=== PATIENT | female | born 1985 | race Caucasian/White ===

== ENCOUNTER 2016-04-14 09:11 | Inpatient (IN) | payer OTHER ==
[2016-04-14] MEDS ORDERED: LIDOCAINE 1% (PF) 10 MG/ML (30 ML SDV) SQ PRN (09:31)
[2016-04-14] MEDS ORDERED: CARBOPROST TROMETHAMINE 250 MCG/ML 1 ML AMP IM PRN (09:31)
[2016-04-14] MEDS ORDERED: TERBUTALINE 1 MG/ML VIAL SQ PRN (09:31)
[2016-04-14] MEDS ORDERED: OXYTOCIN 10 UNIT/ML 1 ML VIAL IM PRN (09:31)
[2016-04-14] MEDS ORDERED: METHYLERGONOVINE 0.2 MG/ML 1 ML AMP IM PRN (09:31)
[2016-04-14] MEDS: LACTATED RINGERS 1,000 ML IV SCH ×2 (10:12→10:33)
[2016-04-14 10:28] VITALS: BMI 42.6
[2016-04-14 10:34] LABS: Basophils % (A) 0 %; CH 29.4; CHCM 33.5; Eosinophils # (A) 0.1 k/uL (0-0.7); Eosinophils % (A) 1 %; HCT 32.5 % (34.0-46.0); HDW 2.94; HGB 10.7 gm/dL (11.4-16.0); Luc # (Auto) 0.21; Luc % (Auto) 2; Lymphocytes # (A) 2.2 k/uL (1.0-4.8); Lymphocytes % (A) 23 %; MCH 29.1 pg (25.0-35.0); MCHC 32.9 g/dL (31.0-37.0); MCV 88.4 fL (80.0-100.0); Mean Platelet Volume 7.4; Monocytes # (A) 0.4 k/uL (0-1.0); Monocytes % (A) 4 %; Neutrophils # (A) 6.5 k/uL (1.3-7.7); Neutrophils % (A) 70 %; RBC 3.68 m/uL (3.80-5.40); RDW 13.6 % (11.5-15.5); WBC 9.3 k/uL (3.8-10.6); WBC (Perox) 9.61
[2016-04-14] MEDS ORDERED: fentaNYL (PF) 50 MCG/ML 2 ML AMP ONE (10:35)
[2016-04-14] MEDS ORDERED: fentaNYL (PF) 50 MCG/ML 5 ML AMP ONE (10:35)
[2016-04-14] MEDS ORDERED: BUPIVACAINE (PF) 0.25% 30 ML VIAL ONE (10:35)
[2016-04-14] MEDS ORDERED: BUPIVACAINE (PF) 0.25% 25 ML, fentaNYL (PF) 200 MCG in SODIUM CHLORIDE 0.9% 71 ML EPIDURAL ONE (11:06)
[2016-04-14] MEDS: OXYTOCIN 30 UNITS/500 ML NS 30 UNIT in SALINE 1 500ML.BAG IV SCH ×2 (12:40→16:47)
[2016-04-14] MEDS ORDERED: WITCH HAZEL 1 EACH MED..PAD TOPICAL PRN (15:29)
[2016-04-14] MEDS ORDERED: LANOLIN CREAM 5 GM TUBE TOPICAL PRN (15:29)
[2016-04-14] MEDS ORDERED: HYDROCORTISONE 2.5% RECTAL CREAM 30 GM TUBE RECTAL PRN (15:29)
[2016-04-14] MEDS ORDERED: diphenhydrAMINE 25 MG CAP PO PRN (15:29)
[2016-04-14] MEDS ORDERED: diphenhydrAMINE 50 MG/ML 1 ML VIAL IVP PRN ×2 (15:29)
[2016-04-14] MEDS ORDERED: diphenhydrAMINE 50 MG CAP PO PRN (15:29)
[2016-04-14] MEDS ORDERED: BENZOCAINE/MENTHOL SPRAY 1 GM/SPRAY AEROSOL TOPICAL PRN (15:29)
[2016-04-14] MEDS ORDERED: SIMETHICONE 80 MG CHEWABLE PO PRN (15:29)
[2016-04-14] MEDS: IBUPROFEN 600 MG TAB PO PRN (15:42)
--- NOTE | 2016-04-14 18:51 | P.HPOB ---
History of Present Illness H&P Date: 04/14/16 Chief Complaint: Intrauterine at term: Spontaneous rupture membranes Patient is a 30-year-old at 40 weeks gestation who ryes secondary to spontaneous rupture membranes. She reports that her water broke at approximately 8:30 this morning and she was having some mild contractions at that time. She right labor and delivery dilated to 5 cm 80% effaced -2 station. Her course otherwise has been, limited with depression symptoms but no other specific. Pertinent labs do include A+ blood type Rh antibody negative rubella immune, hepatitis B surface antigen and RPR both negative. GBS was negative. Past Medical History Past Medical History: No Reported History History of Any Multi-Drug Resistant Organisms: None Reported Past Surgical History: No Surgical Hx Reported Past Anesthesia/Blood Transfusion Reactions: No Reported Reaction Past Psychological History: No Psychological Hx Reported Smoking Status: Former smoker Past Alcohol Use History: None Reported Past Drug Use History: None Reported - Past Family History Mother Family Medical History: No Reported History Medications and Allergies Home Medications Medication Instructions Recorded Confirmed Type No Known Home Medications [No 04/14/16 04/14/16 History Known Home Medications] Allergies Allergy/AdvReac Type Severity Reaction Status Date / Time No Known Allergies Allergy Verified 08/30/14 10:41 Exam Osteopathic Statement: *. No significant issues noted on an osteopathic structural exam other than those noted in the History and Physical/Consult. - Vital Signs Vital signs: Vital Signs Temp Pulse Resp BP 04/14/16 16:31 76 17 120/74 04/14/16 16:01 67 16 123/71 04/14/16 15:46 70 18 130/79 04/14/16 15:31 59 L 17 128/75 04/14/16 15:16 67 18 129/76 04/14/16 15:01 95.8 F L 74 16 127/76 04/14/16 10:19 96.4 F L 122 H 16 134/91 Intake and Output 04/14/16 04/14/16 04/14/16 06:59 14:59 22:59 Intake Total 2.85 Balance 2.85 Intake: Intake, IV Titration 2.85 Amount Oxytocin 30 Units/500 ml 2.85 Ns 30 unit In Saline 1 500ml.bag @ 1 MILLIUNIT/ MIN 1 mls/hr IV .Q24H [facility] Rx#:[id number] Other: # Voids 0 0 Weight 105.687 kg Patient Weight 04/15/16 06:59 Weight 105.687 kg - OBG Physical Exam Breast: both: normal (no masses) Abdomen: bowel sounds normal, no diffuse tenderness, no bruit present, no guarding noted, no hepatomegaly, no splenomegaly, no mass Vulva: both: normal Vagina: normal moisture, no discharge Cervix: no lesion, no discharge Uterus: normal size, normal contour Adnexa: both: normal Anus/Rectum: normal perianal skin, no rectal mass, no hemorrhoids, heme negative Results Result Diagrams: 04/14/16 10:06 Abnormal Lab Results - Last 24 Hours (Table) 04/14/16 Range/Units 10:06 RBC 3.68 L (3.80-5.40) m/uL Hgb 10.7 L (11.4-16.0) gm/dL Hct 32.5 L (34.0-46.0) %
--- NOTE | 2016-04-14 18:52 | P.PROBDLV ---
Vaginal Delivery Note - . Vaginal Delivery Note: Patient progressed complete and pushing with spontaneous vaginal delivery of a viable male over an intact perineum. Falling deliver the head interim posterior shoulders were easily delivered with gentle downward upper traction followed by the remainder the baby. Baby was delivered from left occiput anterior position. Once baby was fully delivered mouth nares were bulb suctioned and baby was placed on mother's abdomen where the umbilical cord was clamped and cut in usual fashion. Placenta was then delivered intact and Pitocin was added to the IV. scores were 9 and 9 at one and 5 minutes respectively and the weight was 7 lbs. 15 oz. Both mother and baby appear stable following delivery.
[2016-04-14] MEDS: SENNOSIDES-DOCUSATE SODIUM 1 EACH TAB PO SCH (20:07)
[2016-04-14] MEDS: ACETAMINOPHEN TAB 325 MG TAB PO PRN (21:35)
[2016-04-15] MEDS: IBUPROFEN 600 MG TAB PO PRN ×2 (05:45→14:55)
[2016-04-15 08:12] LABS: Basophils % (A) 0 %; CH 29.5; CHCM 33.5; Eosinophils # (A) 0.1 k/uL (0-0.7); Eosinophils % (A) 1 %; HCT 30.9 % (34.0-46.0); Luc # (Auto) 0.24; Luc % (Auto) 3; Lymphocytes # (A) 2.2 k/uL (1.0-4.8); Lymphocytes % (A) 23 %; MCH 28.7 pg (25.0-35.0); MCHC 32.4 g/dL (31.0-37.0); MCV 88.5 fL (80.0-100.0); Mean Platelet Volume 7.2; Monocytes # (A) 0.4 k/uL (0-1.0); Monocytes % (A) 4 %; Neutrophils # (A) 6.7 k/uL (1.3-7.7); Neutrophils % (A) 69 %; RBC 3.49 m/uL (3.80-5.40); RDW 13.6 % (11.5-15.5); WBC 9.7 k/uL (3.8-10.6); WBC (Perox) 10.39
[2016-04-15] MEDS: SENNOSIDES-DOCUSATE SODIUM 1 EACH TAB PO SCH (09:14)
--- NOTE | 2016-04-15 09:30 | P.DS ---
Providers Date of admission: 04/14/16 09:30 Expected date of discharge: 04/15/16 Attending physician: Brennen Cooper Primary care physician: Patient is doing very well day 1. She is ambulating, voiding and tolerating her diet. She voices no points. Requests discharged home today. Prescription for Motrin has been provided. She'll follow up with me in 6 weeks. Her vital signs are stable and afebrile. Heart regular, lungs clear, extremities without pain. Abdomen is soft uterus is firm lochia is reported be light. Assessment day 1. Plan discharged home today follow up with me in 6 weeks. Plan - Discharge Summary New Discharge Prescriptions: Ibuprofen [Motrin] 600 mg PO Q6HR PRN #30 tab PRN Reason: Pain Discharge Medication List Ibuprofen [Motrin] 600 mg PO Q6HR PRN #30 tab 04/15/16 [Rx] Follow up Appointment(s)/Referral(s): Brennen Cooper DO [Doctor of Osteopathic Medicine] - 6 Weeks Activity/Diet/Wound Care/Special Instructions: discharge instructions reviewed Discharge Disposition: HOME SELF-CARE
[2016-04-15] MEDS: OXYTOCIN 30 UNITS/500 ML NS 30 UNIT in SALINE 1 500ML.BAG IV SCH ×4 (14:22→20:17)
[2016-04-15] MEDS: LACTATED RINGERS 1,000 ML IV SCH (14:22)
[2016-04-15] MEDS: ACETAMINOPHEN TAB 325 MG TAB PO PRN (16:57)
[2016-04-16] MEDS: SENNOSIDES-DOCUSATE SODIUM 1 EACH TAB PO SCH ×2 (00:17→08:36)
--- NOTE | 2016-04-16 07:23 | P.DS ---
Providers Date of admission: 04/14/16 09:30 Expected date of discharge: 04/16/16 Attending physician: Brennen Cooper [facility] Course: Patient doing very well. She didn't sting last night as her baby had to stay due to jaundice there are no other changes since yesterday and we'll plan for discharged home today. Patient Condition at Discharge: Good Plan - Discharge Summary New Discharge Prescriptions: Ibuprofen [Motrin] 600 mg PO Q6HR PRN #30 tab PRN Reason: Pain Discharge Medication List Ibuprofen [Motrin] 600 mg PO Q6HR PRN #30 tab 04/15/16 [Rx] Follow up Appointment(s)/Referral(s): Brennen Cooper DO [Doctor of Osteopathic Medicine] - 6 Weeks Activity/Diet/Wound Care/Special Instructions: discharge instructions reviewed
[2016-04-16 08:36] VITALS: BP 123/66; PULSE 67; RESP 17; TEMP 98
[2016-04-16] MEDS: IBUPROFEN 600 MG TAB PO PRN (10:32)
== END 2016-04-16 14:30 | disposition home or self-care (01) | DRG 775 ==
LOC: FBPOP 09:11 → 4FBP 09:30
PROVIDERS: ADMIT Obstetrics & Gynecology; ATTEND Obstetrics & Gynecology
PROC: 10E0XZZ Delivery of Products of Conception, External Approach (ICD-10-PCS; principal; 2016-04-14)
DX: O80 Encounter for full-term uncomplicated delivery (principal); Z87.891 Personal history of nicotine dependence; Z37.0 Single live birth; Z3A.40 40 weeks gestation of pregnancy
CPT/HCPCS: 59025; 84112; 85025; 88307; 99213

== ENCOUNTER 2016-12-30 13:28 | Emergency (ER) | payer OTHER ==
[2016-12-30 13:41] VITALS: TEMP 98.2
[2016-12-30] MEDS ORDERED: ACETAMINOPHEN TAB 325 MG TAB PO STA (14:06)
[2016-12-30] MEDS ORDERED: hydrOXYzine PAMOATE 25 MG CAP PO ONE (14:08)
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
[2016-12-30 14:49] LABS: Basophils % (A) 0 %; CHCM 34.4; Eosinophils # (A) 0.1 k/uL (0-0.7); Eosinophils % (A) 2 %; HCT 37.5 % (34.0-46.0); HDW 2.66; HGB 12.9 gm/dL (11.4-16.0); Luc % (Auto) 3; Lymphocytes # (A) 2.2 k/uL (1.0-4.8); Lymphocytes % (A) 29 %; MCH 30.1 pg (25.0-35.0); MCHC 34.5 g/dL (31.0-37.0); MCV 87.4 fL (80.0-100.0); Mean Platelet Volume 6.9; Monocytes # (A) 0.4 k/uL (0-1.0); Monocytes % (A) 6 %; Neutrophils # (A) 4.7 k/uL (1.3-7.7); Neutrophils % (A) 61 %; RBC 4.29 m/uL (3.80-5.40); RDW 13.4 % (11.5-15.5); WBC 7.7 k/uL (3.8-10.6); WBC (Perox) 7.75
[2016-12-30 14:53] LABS: Appearance,Urine Clear (Clear); Bilirubin,Urine Negative (Negative); Glucose,Urine (UA) Negative (Negative); Ketones,Urine Negative (Negative); Leukocyte Esterase,Urine Trace (Negative); Nitrite,Urine Negative (Negative); Particle Count 1863; Protein,Urine Negative (Negative); Specific Gravity,Urine 1.025 (1.001-1.035); Squamous Epithelial Cell,Urine 5 /hpf (0-4); UA Billing (MACRO vs. MICRO) MICRO; Urobilinogen,Urine <2.0 mg/dL (<2.0); WBC,Urine 2 /hpf (0-5)
[2016-12-30 15:00] LABS: Anion Gap 13 mmol/L; Blood Urea Nitrogen 15 mg/dL (7-17); Calcium 9.2 mg/dL (8.4-10.2); Carbon Dioxide 18 mmol/L (22-30); Chloride 111 mmol/L (98-107); Glucose 83 mg/dL (74-99); Non-African American GFR(MDRD) >60 (>60 ml/min/1.73 sqM); Potassium 4.2 mmol/L (3.5-5.1); Sodium 142 mmol/L (137-145)
[2016-12-30 15:05] LABS: HCG,Qualitative Serum Not Detected
[2016-12-30 16:58] VITALS: BP 131/86; PULSE 70; RESP 16
== END 2016-12-30 16:57 | disposition home or self-care (01) ==
LOC: EC 13:28
DX: O99.345 Other mental disorders complicating the puerperium (principal); F41.9 Anxiety disorder, unspecified; F32.9 Major depressive disorder, single episode, unspecified; R45.83 Excessive crying of child, adolescent or adult; R45.851 Suicidal ideations; Z87.891 Personal history of nicotine dependence
CPT/HCPCS: 36415; 80048; 81001; 82075; 84443; 84703; 85025; 99284

== ENCOUNTER 2017-06-06 20:08 | Emergency (ER) | payer OTHER ==
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
--- NOTE | 2017-06-06 21:17 | XR ---
EXAMINATION TYPE: XR hand complete LT DATE OF EXAM: 06/06/2017 COMPARISON: NONE HISTORY: Hand pain TECHNIQUE: 3 views FINDINGS: I see no fracture nor dislocation. Metacarpals are intact. There are no erosions. IMPRESSION: Negative left hand exam. No evidence of metacarpal fracture.
[2017-06-06 21:29] VITALS: BP 147/78; PULSE 103; RESP 18; TEMP 99.2
== END 2017-06-06 21:41 | disposition home or self-care (01) ==
LOC: EC 20:08
DX: S09.90XA Unspecified injury of head, initial encounter (principal); M79.642 Pain in left hand; Z87.891 Personal history of nicotine dependence; Y09 Assault by unspecified means; Y92.009 Unspecified place in unspecified non-institutional (private) residence as the place of occurrence of the external cause
CPT/HCPCS: 70450; 99284

== ENCOUNTER 2017-09-21 18:36 | Emergency (ER) | payer OTHER ==
[2017-09-21 20:34] VITALS: RESP 16
[2017-09-21 20:36] LABS: Basophils % (A) 0 %; Eosinophils # (A) 0.3 k/uL (0-0.7); Eosinophils % (A) 3 %; HCT 38.4 % (34.0-46.0); HGB 13.1 gm/dL (11.4-16.0); Lymphocytes # (A) 1.7 k/uL (1.0-4.8); Lymphocytes % (A) 20 %; MCH 29.8 pg (25.0-35.0); MCV 87.6 fL (80.0-100.0); Monocytes # (A) 0.4 k/uL (0-1.0); Monocytes % (A) 5 %; Neutrophils # (A) 5.7 k/uL (1.3-7.7); Neutrophils % (A) 69 %; Platelet Count 187 k/uL (150-450); RBC 4.39 m/uL (3.80-5.40); RDW 14.2 % (11.5-15.5); WBC 8.1 k/uL (3.8-10.6)
[2017-09-21 20:38] LABS: Appearance,Urine Clear (Clear); Bacteria,Urine Rare /hpf; Bilirubin,Urine 1+ (Negative); Blood,Urine Moderate (Negative); Color,Urine Yellow; Glucose,Urine (UA) Negative (Negative); Ketones,Urine 2+ (Negative); Leukocyte Esterase,Urine Trace (Negative); Mucus,Urine Many /hpf; Nitrite,Urine Negative (Negative); Protein,Urine 1+ (Negative); RBC,Urine <1 /hpf (0-5); Specific Gravity,Urine 1.036 (1.001-1.035); Squamous Epithelial Cell,Urine 2 /hpf (0-4); WBC,Urine 1 /hpf (0-5)
--- NOTE | 2017-09-21 20:56 | ED ---
Female Urogenital HPI - General Chief complaint: Vaginal Bleeding Stated complaint: 6wks preg, bleeding Time Seen by Provider: 09/21/17 19:40 Source: patient, RN notes reviewed, old records reviewed Mode of arrival: ambulatory Limitations: no limitations - History of Present Illness Initial comments: [age] female presents the chief complaint of vaginal bleeding today. She reports she was having a positive test and thinks she is 6 weeks . Patient states that the female. Patient reports cramping through pelvis and legs. She follows with Dr. Cooper. No treatment up to today. Last Menstrual Period: 08/02/17 - Related Data Home Medications Medication Instructions Recorded Confirmed No Known Home Medications [No 09/21/17 09/21/17 Known Home Medications] Allergies Allergy/AdvReac Type Severity Reaction Status Date / Time No Known Allergies Allergy Verified 09/21/17 19:59 Review of Systems ROS Statement: Those systems with pertinent positive or pertinent negative responses have been documented in the HPI. ROS Other: All systems not noted in ROS Statement are negative. Past Medical History Past Medical History: No Reported History History of Any Multi-Drug Resistant Organisms: None Reported Past Surgical History: No Surgical Hx Reported Past Anesthesia/Blood Transfusion Reactions: No Reported Reaction Past Psychological History: Anxiety, Depression Smoking Status: Former smoker Past Alcohol Use History: None Reported Past Drug Use History: None Reported - Past Family History Mother Family Medical History: No Reported History General Exam - General Exam Comments Initial Comments: (32-year-old female. Alert and oriented. No distress. Limitations: no limitations General appearance: alert, in no apparent distress Head exam: Present: atraumatic, normocephalic, normal inspection Eye exam: Present: normal appearance, PERRL, EOMI. Absent: scleral icterus, conjunctival injection, periorbital swelling Neck exam: Present: normal inspection. Absent: tenderness, meningismus, lymphadenopathy Respiratory exam: Present: normal lung sounds bilaterally. Absent: respiratory distress, wheezes, rales, rhonchi, stridor Cardiovascular Exam: Present: regular rate, normal rhythm, normal heart sounds. Absent: systolic murmur, diastolic murmur, rubs, gallop, clicks GI/Abdominal exam: Present: soft, normal bowel sounds. Absent: distended, tenderness, guarding, rebound, rigid External exam: Present: normal external exam Speculum exam: Present: vaginal bleeding (with clots). Absent: normal speculum exam Extremities exam: Present: normal inspection, full ROM, normal capillary refill. Absent: tenderness, pedal edema, joint swelling, calf tenderness Back exam: Present: normal inspection Neurological exam: Present: alert, oriented X3, CN II-XII intact Psychiatric exam: Present: normal affect, normal mood Course Vital Signs 09/21/17 09/21/17 09/21/17 18:48 19:50 21:00 Temperature 98.7 F 98.1 F Pulse Rate 85 75 68 Respiratory 18 16 Rate Blood Pressure 148/91 135/79 144/78 O2 Sat by Pulse 99 96 95 Oximetry Medical Decision Making - Medical Decision Making Patient is a 32 female with CC of vaginal bleeding and she believes that she is 6 weeks . Patient has A positive blood type. She does have significant bleeding on pelvic exam, clots noted. No sign of particles of conception, cervix appears closed. Patient Hcg is 3844. Patient US shows intrauterine gestastional sack and to to follow up with repeat US in 10 days for heart tones. At this time I believe patient is actively miscarrying. Discussed repeat hcg level and follow up with OB. Patient understands return parameters. - Lab Data Result diagrams: 09/21/17 19:56 Lab Results 09/21/17 09/21/17 09/21/17 Range/Units 19:56 19:56 19:56 WBC 8.1 (3.8-10.6) k/uL RBC 4.39 (3.80-5.40) m/uL Hgb 13.1 (11.4-16.0) gm/dL Hct 38.4 (34.0-46.0) % MCV 87.6 (80.0-100.0) fL MCH 29.8 (25.0-35.0) pg MCHC 34.0 (31.0-37.0) g/dL RDW 14.2 (11.5-15.5) % Plt Count 187 (150-450) k/uL Neutrophils % 69 % Lymphocytes % 20 % Monocytes % 5 % Eosinophils % 3 % Basophils % 0 % Neutrophils # 5.7 (1.3-7.7) k/uL Lymphocytes # 1.7 (1.0-4.8) k/uL Monocytes # 0.4 (0-1.0) k/uL Eosinophils # 0.3 (0-0.7) k/uL Basophils # 0.0 (0-0.2) k/uL HCG, Quant mIU/mL Urine Color Urine Appearance (Clear) Urine pH (5.0-8.0) Ur Specific [place] (1.001-1.035) Urine Protein (Negative) Urine Glucose (UA) (Negative) Urine Ketones (Negative) Urine Blood (Negative) Urine Nitrite (Negative) Urine Bilirubin (Negative) Urine Urobilinogen (<2.0) mg/dL Ur Leukocyte Esterase (Negative) Urine RBC (0-5) /hpf Urine WBC (0-5) /hpf Ur Squamous Epith Cells (0-4) /hpf Urine Bacteria (None) /hpf Urine Mucus (None) /hpf Urine HCG, Qual (Not Detectd) Chlamydia Source Vagina Chlamydia DNA (PCR) Negative (Neg,Equiv) N. gonorrhoeae Source Vagina N.gonorrhoeae DNA Probe Negative (Neg,Equiv) Trichomonas Ag (Rapid) (Negative) Blood Type A Positive Blood Type Recheck No 09/21/17 09/21/17 09/21/17 Range/Units 19:56 19:56 19:56 WBC (3.8-10.6) k/uL RBC (3.80-5.40) m/uL Hgb (11.4-16.0) gm/dL Hct (34.0-46.0) % MCV (80.0-100.0) fL MCH (25.0-35.0) pg MCHC (31.0-37.0) g/dL RDW (11.5-15.5) % Plt Count (150-450) k/uL Neutrophils % % Lymphocytes % % Monocytes % % Eosinophils % % Basophils % % Neutrophils # (1.3-7.7) k/uL Lymphocytes # (1.0-4.8) k/uL Monocytes # (0-1.0) k/uL Eosinophils # (0-0.7) k/uL Basophils # (0-0.2) k/uL HCG, Quant 3844.4 mIU/mL Urine Color Urine Appearance (Clear) Urine pH (5.0-8.0) Ur Specific [place] (1.001-1.035) Urine Protein (Negative) Urine Glucose (UA) (Negative) Urine Ketones (Negative) Urine Blood (Negative) Urine Nitrite (Negative) Urine Bilirubin (Negative) Urine Urobilinogen (<2.0) mg/dL Ur Leukocyte Esterase (Negative) Urine RBC (0-5) /hpf Urine WBC (0-5) /hpf Ur Squamous Epith Cells (0-4) /hpf Urine Bacteria (None) /hpf Urine Mucus (None) /hpf Urine HCG, Qual Detected (Not Detectd) Chlamydia Source Chlamydia DNA (PCR) (Neg,Equiv) N. gonorrhoeae Source N.gonorrhoeae DNA Probe (Neg,Equiv) Trichomonas Ag (Rapid) Negative (Negative) Blood Type Blood Type Recheck 09/21/17 Range/Units 19:56 WBC (3.8-10.6) k/uL RBC (3.80-5.40) m/uL Hgb (11.4-16.0) gm/dL Hct (34.0-46.0) % MCV (80.0-100.0) fL MCH (25.0-35.0) pg MCHC (31.0-37.0) g/dL RDW (11.5-15.5) % Plt Count (150-450) k/uL Neutrophils % % Lymphocytes % % Monocytes % % Eosinophils % % Basophils % % Neutrophils # (1.3-7.7) k/uL Lymphocytes # (1.0-4.8) k/uL Monocytes # (0-1.0) k/uL Eosinophils # (0-0.7) k/uL Basophils # (0-0.2) k/uL HCG, Quant mIU/mL Urine Color Yellow Urine Appearance Clear (Clear) Urine pH 6.0 (5.0-8.0) Ur Specific [place] 1.036 H (1.001-1.035) Urine Protein 1+ H (Negative) Urine Glucose (UA) Negative (Negative) Urine Ketones 2+ H (Negative) Urine Blood Moderate H (Negative) Urine Nitrite Negative (Negative) Urine Bilirubin 1+ H (Negative) Urine Urobilinogen 3.0 (<2.0) mg/dL Ur Leukocyte Esterase Trace H (Negative) Urine RBC <1 (0-5) /hpf Urine WBC 1 (0-5) /hpf Ur Squamous Epith Cells 2 (0-4) /hpf Urine Bacteria Rare H (None) /hpf Urine Mucus Many H (None) /hpf Urine HCG, Qual (Not Detectd) Chlamydia Source Chlamydia DNA (PCR) (Neg,Equiv) N. gonorrhoeae Source N.gonorrhoeae DNA Probe (Neg,Equiv) Trichomonas Ag (Rapid) (Negative) Blood Type Blood Type Recheck - Radiology Data Radiology results: report reviewed [place] intrauterine fluid collection measures 14 x 7 x 18 mm of could be early gestational sac. Follow-up in 14 days recommended. Disposition Clinical Impression: Threatened miscarriage Disposition: HOME SELF-CARE Condition: Good Instructions: Menstruation (ED) Additional Instructions: Repeat HCG level in 2 days, follow up with OB for repeat labs and US. Is patient prescribed a controlled substance at d/c from ED?: No When asked, does pt state using other controlled substances?: No If prescribed controlled substance>3 days was MAPS reviewed?: No If opioid is for acute pain is fill amount 7 days or less?: No If Rx opioid, was Start Talking consent form obtained?: No Referrals: None,Stated [Primary Care Provider] - 1-2 days Brennen Cooper DO [Doctor of Osteopathic Medicine] - 1-2 days Time of Disposition: 21:35
--- NOTE | 2017-09-21 21:08 | US ---
EXAMINATION TYPE: Transabdominal DATE OF EXAM: 07/11/17 COMPARISON: NONE CLINICAL HISTORY: Pain. Spotting EXAM PERFORMED: Transabdominal (TA) EXAM MEASUREMENTS: GESTATIONAL AGE / DATING Physician Established: Not yet established Dates by LMP: (7 weeks/1 days) EDC: 05/09/2018 Dates by First Scan: No previous this is first scan Dates by Current Scan for: No IUP seen at this time MATERNAL ANATOMY Uterus: 9.2 x 6.1 x 6.4 cm Right Ovary: 3.3 x 1.7 x 2.5 cm Left Ovary: 2.6 x 1.9 x 2.2 cm Post CDS / Adnexa: wnl Presence of free fluid: no Presence of corpus luteal cyst: no Presence of subchorionic bleed: no GESTATION / SURVEY MSD: 1.3 cm (5 weeks/4 days) IUP: No IUP seen at this time Beta HcG (if available): Not available at this time No IUP seen at this time. IMPRESSION: There are small intrauterine fluid collection that measures 14 x 7 x 18 mm that could be an early ges tational sac. Follow-up is recommended in 14 days if clinically indicated.
[2017-09-21 21:44] VITALS: BP 144/78; PULSE 68; TEMP 98.1
[2017-09-22 13:33] LABS: C. trachomatis,PCR Negative (Neg,Equiv); Chlamydia trachomatis Source Vagina; N. gonorrhoeae,PCR Negative (Neg,Equiv); Neisseria Source Vagina
== END 2017-09-21 21:58 | disposition home or self-care (01) ==
LOC: EC 18:36
DX: O20.0 Threatened abortion (principal); Z87.891 Personal history of nicotine dependence; Z3A.01 Less than 8 weeks gestation of pregnancy
CPT/HCPCS: 36415; 76801; 81001; 81025; 84702; 85025; 86900; 86901; 87070; 87205; 87491; 87591; 87808; 99284

== ENCOUNTER → 2017-09-23 | Outpatient (CLI) | payer OTHER | END | disposition home or self-care (01) | LOC: LABWHC1 10:48 | PROVIDERS: ATTEND Physician Assistant Medical | DX: O20.0 Threatened abortion (principal); Z3A.00 Weeks of gestation of pregnancy not specified | CPT/HCPCS: 36415; 84702 ==

== ENCOUNTER → 2017-09-29 | Outpatient (CLI) | payer OTHER | END | disposition home or self-care (01) | LOC: LABWHC1 09:29 | PROVIDERS: ATTEND Obstetrics & Gynecology | DX: O03.9 Complete or unspecified spontaneous abortion without complication (principal) | CPT/HCPCS: 36415; 84702 ==

== ENCOUNTER 2018-01-09 05:59 | Emergency (ER) | payer OTHER ==
[2018-01-09 06:11] VITALS: TEMP 98.2
[2018-01-09] MEDS ORDERED: KETOROLAC 60 MG/2 ML VIAL IM STA (06:28)
[2018-01-09] MEDS ORDERED: ORPHENADRINE 30 MG/ML 2 ML VIAL IM STA (06:28)
--- NOTE | 2018-01-09 06:33 | ED ---
Upper Extremity HPI - General Chief Complaint: Extremity Injury, Upper Stated Complaint: SHOULDER PAIN Time Seen by Provider: 01/09/18 06:16 Source: patient Mode of arrival: ambulatory Limitations: no limitations - History of Present Illness Initial Comments: This patient is a 32-year-old woman who complains of right shoulder/arm pain that had come on yesterday. She noticed it in the morning after she woke up, and had attributed it to sleeping in a funny position. The pain is a burning sensation, moderate to severe, and constant. The pain does get worse if she tries to move her arm, and is better if she remains still. She states that the pain has not really improved since that time however so she thought she should have it evaluated. She has not had any associated symptoms, including no fever or chills, weakness or numbness of the arm. She has not noticed rash or any discoloration. There is no neck pain. MD Complaint: Injury to:: right, shoulder, arm -: days(s) Time: 02:00 Other Injuries: none Handedness: right Place: home Improves With: none Worsens With: none Associated Symptoms: denies other symptoms - Related Data Home Medications Medication Instructions Recorded Confirmed Acetaminophen Tab [Tylenol Tab] 650 mg PO Q4H PRN 01/09/18 01/09/18 Previous Rx's Medication Instructions Recorded Ibuprofen [Motrin] 600 mg PO Q8HR PRN #20 tab 01/09/18 Methocarbamol [Robaxin-750] 750 mg PO TID PRN #30 tablet 01/09/18 Allergies Allergy/AdvReac Type Severity Reaction Status Date / Time No Known Allergies Allergy Verified 01/09/18 07:19 Review of Systems ROS Statement: Those systems with pertinent positive or pertinent negative responses have been documented in the HPI. ROS Other: All systems not noted in ROS Statement are negative. Constitutional: Denies: fever, chills, weakness Respiratory: Denies: cough, dyspnea Cardiovascular: Denies: chest pain, palpitations Musculoskeletal: Reports: as per HPI, myalgia. Denies: back pain, joint swelling, arthralgia Skin: Denies: rash Neurological: Denies: headache, weakness, numbness, paresthesias Past Medical History Past Medical History: No Reported History History of Any Multi-Drug Resistant Organisms: None Reported Past Surgical History: No Surgical Hx Reported Past Anesthesia/Blood Transfusion Reactions: No Reported Reaction Past Psychological History: Anxiety, Depression Smoking Status: Current some day smoker Past Alcohol Use History: None Reported Past Drug Use History: None Reported - Past Family History Mother Family Medical History: No Reported History General Exam Limitations: no limitations General appearance: alert, in no apparent distress Head exam: Present: atraumatic, normocephalic Eye exam: Present: normal appearance. Absent: scleral icterus, conjunctival injection Neck exam: Present: normal inspection, tenderness, other (Patient has spasm of the right trapezius and tenderness. She has flexion and extension of the neck but limited rotation to the left due to pain.). Absent: full ROM, lymphadenopathy Extremities exam: Present: full ROM, normal capillary refill. Absent: tenderness Back exam: Absent: paraspinal tenderness, vertebral tenderness Neurological exam: Present: alert. Absent: motor sensory deficit Skin exam: Present: warm, dry, intact, normal color. Absent: rash Course Vital Signs 01/09/18 06:07 Temperature 98.2 F Pulse Rate 81 Respiratory 20 Rate Blood Pressure 133/84 O2 Sat by Pulse 98 Oximetry Disposition Clinical Impression: Strain of shoulder Disposition: HOME SELF-CARE Condition: Good Instructions: Muscle Spasm (ED) Prescriptions: Ibuprofen [Motrin] 600 mg PO Q8HR PRN #20 tab PRN Reason: Pain Methocarbamol [Robaxin-750] 750 mg PO TID PRN #30 tablet PRN Reason: pain Is patient prescribed a controlled substance at d/c from ED?: No Referrals: Ludmila Hawk MD [STAFF PHYSICIAN] - 1-2 days
[2018-01-09 07:37] VITALS: BP 117/69; PULSE 60; RESP 18
== END 2018-01-09 07:39 | disposition home or self-care (01) ==
LOC: EC 05:59
DX: S46.911A Strain of unspecified muscle, fascia and tendon at shoulder and upper arm level, right arm, initial encounter (principal); F17.200 Nicotine dependence, unspecified, uncomplicated; X58.XXXA Exposure to other specified factors, initial encounter; Y92.009 Unspecified place in unspecified non-institutional (private) residence as the place of occurrence of the external cause
CPT/HCPCS: 99283; 96372 ×2; J2360; J1885

== ENCOUNTER 2018-05-18 13:53 | Emergency (ER) | payer OTHER ==
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
[2018-05-18 14:52] LABS: Appearance,Urine Clear (Clear); Bacteria,Urine Rare /hpf; Bilirubin,Urine Negative (Negative); Blood,Urine Negative (Negative); Color,Urine Light Yellow; Glucose,Urine (UA) Negative (Negative); Ketones,Urine Negative (Negative); Leukocyte Esterase,Urine Trace (Negative); Mucus,Urine Rare /hpf; Nitrite,Urine Negative (Negative); PH, Urine 5.5 (5.0-8.0); Protein,Urine Negative (Negative); RBC,Urine 1 /hpf (0-5); Specific Gravity,Urine 1.018 (1.001-1.035); Squamous Epithelial Cell,Urine 2 /hpf (0-4); Urobilinogen,Urine <2.0 mg/dL (<2.0); WBC,Urine 1 /hpf (0-5)
--- NOTE | 2018-05-18 15:19 | XR ---
EXAMINATION TYPE: XR wrist complete LT DATE OF EXAM: 05/18/2018 CLINICAL HISTORY: Lateral left wrist pain TECHNIQUE: Frontal, lateral and oblique images of the left wrist are obtained. Scaphoid view was als o obtained COMPARISON: None FINDINGS: There is no acute fracture/dislocation evident in the left wrist. The joint spaces in the left wrist appear within normal limits. The overlying soft tissue appears unremarkable. IMPRESSION: There is no acute fracture or dislocation in the left wrist.
[2018-05-18 17:15] VITALS: BP 122/68; PULSE 82; RESP 18; TEMP 97.9
== END 2018-05-18 17:05 | disposition home or self-care (01) ==
LOC: EC 13:53
DX: S69.92XA Unspecified injury of left wrist, hand and finger(s), initial encounter (principal); Z32.02 Encounter for pregnancy test, result negative; F17.200 Nicotine dependence, unspecified, uncomplicated; W19.XXXA Unspecified fall, initial encounter
CPT/HCPCS: 81001; 81025; 99283

== ENCOUNTER 2018-08-27 11:26 | Emergency (ER) | payer OTHER ==
[2018-08-27] MEDS ORDERED: HYDROcodone/APAP 5-325MG 1 EACH TAB PO STA (11:52)
--- NOTE | 2018-08-27 12:24 | XR ---
EXAMINATION TYPE: XR chest 2V DATE OF EXAM: 08/27/2018 COMPARISON: NONE TECHNIQUE: PA and lateral views submitted. HISTORY: Pain FINDINGS: The lungs are clear and there is no pneumothorax, pleural effusion, or focal pneumonia. Upper media stinum on the right is somewhat prominent. IMPRESSION: 1. Prominence of the upper mediastinum on the right for the patient's age group. Recommend CT of the chest.
--- NOTE | 2018-08-27 12:25 | XR ---
EXAM TYPE: LUMBAR SPINE X RAY SERIES COMPARISON: NONE HISTORY: Pain TECHNIQUE: 3 views are submitted. FINDINGS: Alignment is anatomic. The pedicles are intact. The transverse processes are intact. There is no s pondylolysis or spondylolisthesis. IMPRESSION: 1. No acute process. If symptoms persist consider MRI.
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
[2018-08-27] MEDS ORDERED: ACET/COD 300 MG/30 MG STARTER PACK 6 TAB BTL PO STA (15:34)
[2018-08-27 15:57] VITALS: BP 128/78; PULSE 80; RESP 18; TEMP 98
== END 2018-08-27 15:50 | disposition home or self-care (01) ==
LOC: EC 11:26
DX: M54.5 Low back pain (principal); R07.81 Pleurodynia; F17.200 Nicotine dependence, unspecified, uncomplicated; Z79.3 Long term (current) use of hormonal contraceptives
CPT/HCPCS: 72100; 71046; 71260; 74177; 99284; Q9967

== ENCOUNTER → 2019-04-08 | Outpatient (CLI) | payer OTHER ==
[2019-04-08 17:16] LABS: HCT 34.8 % (34.0-46.0); HGB 11.8 gm/dL (11.4-16.0); MCH 29.7 pg (25.0-35.0); MCV 87.6 fL (80.0-100.0); Mean Platelet Volume 7.4; Platelet Count 187 k/uL (150-450); RBC 3.97 m/uL (3.80-5.40); WBC 8.1 k/uL (3.8-10.6)
[2019-04-08 17:56] LABS: African American GFR (CKD) >90 (>60 ml/min/1.73 sqM); Glucose 87 mg/dL (74-99); Non-African American GFR(CKD) >90 (>60 ml/min/1.73 sqM)
--- NOTE | 2019-04-08 23:19 | US ---
EXAMINATION TYPE: US OB >= 14 wk fetus DATE OF EXAM: 04/08/2019 COMPARISON: None CLINICAL HISTORY: Z36 confirm dates TECHNIQUE: GESTATIONAL AGE / DATING Physician Established: (13 weeks/5 days) EDC: 10/09/19 Dates by LMP: (13 weeks/5 days) EDC: 10/09/19 Dates by First Scan: No previous this is first scan Dates by Current Scan: (14 weeks/5 days) EDC: 10/01/18 SURVEY IUP: Single MARS: 15.5 cm CERVICAL LENGTH (transabdominal: norm > 3.0cm): 3.3 cm BIOMETRY PRESENTATION: Vertex BPD: 2.6 cm 14 weeks / 4 days HC: 10.1 cm 14 weeks / 5 days AC: 8.2 cm 14 weeks / 4 days FL: 1.3 cm 13 weeks / 5 days ESTIMATED WEIGHT IN GRAMS: 92 grams ESTIMATED WEIGHT IN LBS/OZ: 0 lbs. 3 oz. WEIGHT PERCENTAGE BASED ON ESTABLISHED DATES: % HC/AC: 1.2 FL/AC: 15.3 HEART RATE: 168 bpm RHYTHM: Normal MATERNAL WALL MEASUREMENT: 3.8 cm from skin to anterior uterine wall (if exam limited due to body hab itus). Single live intrauterine gestation is confirmed as gestational sac and pole are seen. Yolk sac is not clearly identified. Normal cephalad presentation currently. No cervical thickening. No placent a previa. Amniotic fluid index calculated within normal limits. biometry measurements concordan t and felt normal limits. IMPRESSION: As above.
[2019-04-09 01:02] LABS: HIV 1 AB Non-Reactive (Non-Reactive); HIV 2 AB Non-Reactive (Non-Reactive); HIV AB P24 Non-Reactive (Non-Reactive); HIV P24 AG Non-Reactive (Non-Reactive)
[2019-04-09 01:35] LABS: Hepatitis B Surface Antigen Non-Reactive (Non-Reactive)
== END | disposition home or self-care (01) ==
LOC: RADUSWWP 15:43
PROVIDERS: ATTEND Obstetrics & Gynecology
DX: Z36.89 Encounter for other specified antenatal screening (principal); Z34.81 Encounter for supervision of other normal pregnancy, first trimester; Z3A.14 14 weeks gestation of pregnancy
CPT/HCPCS: 36415; 76805; 82565; 82947; 85027; 86762; 86780; 86850; 86900; 86901; 87340; 87390

== ENCOUNTER 2019-04-23 10:15 | Emergency (ER) | payer OTHER ==
[2019-04-23 10:20] VITALS: RESP 18
[2019-04-23] MEDS ORDERED: SODIUM CHLORIDE 0.9% 1,000 ML IV STA (10:51)
--- NOTE | 2019-04-23 10:59 | ED ---
General Adult HPI - General Chief complaint: Syncope Stated complaint: 16wks /near syncope Time Seen by Provider: 04/23/19 10:32 Source: patient, RN notes reviewed Mode of arrival: wheelchair Limitations: no limitations - History of Present Illness Initial comments: 33-year-old female currently 16 weeks presents to the emergency [facility] for a chief complaint of lightheadedness. Patient states that this morning around 9:30 she started to feel hot. States she went outside a few times. Patient states that she went into the office to sit down around 10:00 and felt she was going to pass out. States was a very brief moment. States her vision went a little blurry and she felt like her heart was racing. Patient however did not lose consciousness. Patient then came to the emergency department. Patient states she does feel dehydrated and hasn't been drinking as much water as normal. At this time states that she feels at her baseline as is feeling much better. Patient denies any chest pain or shortness of breath. Patient is receiving care and had an ultrasound 2 weeks ago confirming an intrauterine . Denies any vaginal bleeding.Patient has no other complaints at this time including shortness of breath, chest pain, abdominal pain, nausea or vomiting, headache. - Related Data Home Medications Medication Instructions Recorded Confirmed No Known Home Medications 04/23/19 04/23/19 Allergies Allergy/AdvReac Type Severity Reaction Status Date / Time No Known Allergies Allergy Verified 04/23/19 11:21 Review of Systems ROS Statement: Those systems with pertinent positive or pertinent negative responses have been documented in the HPI. ROS Other: All systems not noted in ROS Statement are negative. Past Medical History Past Medical History: No Reported History History of Any Multi-Drug Resistant Organisms: None Reported Past Surgical History: No Surgical Hx Reported Past Anesthesia/Blood Transfusion Reactions: No Reported Reaction Past Psychological History: Anxiety, Depression Smoking Status: Former smoker Past Alcohol Use History: None Reported Past Drug Use History: None Reported - Past Family History Mother Family Medical History: No Reported History General Exam Limitations: no limitations General appearance: alert, in no apparent distress Head exam: Present: atraumatic, normocephalic, normal inspection Eye exam: Present: normal appearance, PERRL, EOMI. Absent: scleral icterus, conjunctival injection, periorbital swelling ENT exam: Present: normal exam, mucous membranes moist Neck exam: Present: normal inspection, full ROM. Absent: tenderness, meningismus, lymphadenopathy Respiratory exam: Present: normal lung sounds bilaterally. Absent: respiratory distress, wheezes, rales, rhonchi, stridor Cardiovascular Exam: Present: regular rate, normal rhythm, normal heart sounds. Absent: systolic murmur, diastolic murmur, rubs, gallop, clicks GI/Abdominal exam: Present: soft, normal bowel sounds. Absent: distended, tenderness, guarding, rebound, rigid Neurological exam: Present: alert, oriented X3 Course Vital Signs 04/23/19 04/23/19 10:17 12:02 Temperature 98.0 F 99.0 F Pulse Rate 101 H 73 Respiratory 18 18 Rate Blood Pressure 116/76 115/67 O2 Sat by Pulse 98 99 Oximetry EKG Findings - EKG Comments: EKG Findings:: Normal sinus rhythm, ventricular rate 85, FL interval 142, QTC 418 Medical Decision Making - Medical Decision Making Ultrasound from 04/08/2019 was reviewed which shows a single live intrauterine gestation. Vitals are stable. Patient is well-appearing. States that all symptoms have resolved at this point. EKG is unremarkable. Exam is unremarkable. Abdomen is nontender. CBC CMP unremarkable however glucose is 72 which may have contributed to her lightheadedness. Patient was given crackers, peanut butter, and a sandwich. Urinalysis unremarkable. Contaminated with squamous cells. Urine culture was performed. Patient was given a liter of fluids. She has a confirmed intrauterine . At this time patient can follow up with primary care return here if she has any worsening symptoms. - Lab Data Result diagrams: 04/23/19 11:01 04/23/19 11:01 Lab Results 04/23/19 04/23/19 04/23/19 Range/Units 11:01 11: 11:01 WBC 7.8 (3.8-10.6) k/uL RBC 4.09 (3.80-5.40) m/uL Hgb 12.1 (11.4-16.0) gm/dL Hct 36.2 (34.0-46.0) % MCV 88.5 (80.0-100.0) fL MCH 29.6 (25.0-35.0) pg MCHC 33.5 (31.0-37.0) g/dL RDW 13.2 (11.5-15.5) % Plt Count 192 (150-450) k/uL Neutrophils % 76 % Lymphocytes % 16 % Monocytes % 4 % Eosinophils % 1 % Basophils % 0 % Neutrophils # 5.9 (1.3-7.7) k/uL Lymphocytes # 1.2 (1.0-4.8) k/uL Monocytes # 0.3 (0-1.0) k/uL Eosinophils # 0.1 (0-0.7) k/uL Basophils # 0.0 (0-0.2) k/uL Sodium 137 (137-145) mmol/L Potassium 4.1 (3.5-5.1) mmol/L Chloride 108 H (98-107) mmol/L Carbon Dioxide 21 L (22-30) mmol/L Anion Gap 8 mmol/L BUN 6 L (7-17) mg/dL Creatinine 0.51 L (0.52-1.04) mg/dL Est GFR (CKD-EPI)AfAm >90 (>60 ml/min/1.73 sqM) Est GFR (CKD-EPI)NonAf >90 (>60 ml/min/1.73 sqM) Glucose 72 L (74-99) mg/dL Calcium 9.3 (8.4-10.2) mg/dL Magnesium 1.7 (1.6-2.3) mg/dL Total Bilirubin 0.5 (0.2-1.3) mg/dL AST 20 (14-36) U/L ALT 13 (4-34) U/L Alkaline Phosphatase 52 (38-126) U/L Total Protein 6.6 (6.3-8.2) g/dL Albumin 3.5 (3.5-5.0) g/dL Urine Color Yellow Urine Appearance Cloudy H (Clear) Urine pH 6.0 (5.0-8.0) Ur Specific [place] 1.031 (1.001-1.035) Urine Protein 1+ H (Negative) Urine Glucose (UA) Negative (Negative) Urine Ketones Negative (Negative) Urine Blood Negative (Negative) Urine Nitrite Negative (Negative) Urine Bilirubin Negative (Negative) Urine Urobilinogen <2.0 (<2.0) mg/dL Ur Leukocyte Esterase Large H (Negative) Urine RBC 2 (0-5) /hpf Urine WBC 6 H (0-5) /hpf Ur Squamous Epith Cells 24 H (0-4) /hpf Calcium Oxalate Crystal Few H (None) /hpf Urine Bacteria Rare H (None) /hpf Urine Mucus Moderate H (None) /hpf Disposition Clinical Impression: Light headed Disposition: HOME SELF-CARE Condition: Good Instructions (If sedation given, give patient instructions): Near Syncope (ED) Additional Instructions: Please drink plenty of fluids. Please follow-up with your OPTIMIZATION CONSULTANT as soon as possible. Given any worsening symptoms return here to the emergency department. Is patient prescribed a controlled substance at d/c from ED?: No Referrals: Susan Burden MD [Primary Care Provider] - 1-2 days Time of Disposition: 12:04
[2019-04-23 11:18] LABS: Basophils % (A) 0 %; Eosinophils # (A) 0.1 k/uL (0-0.7); Eosinophils % (A) 1 %; HCT 36.2 % (34.0-46.0); HGB 12.1 gm/dL (11.4-16.0); Lymphocytes # (A) 1.2 k/uL (1.0-4.8); Lymphocytes % (A) 16 %; MCH 29.6 pg (25.0-35.0); MCHC 33.5 g/dL (31.0-37.0); MCV 88.5 fL (80.0-100.0); Mean Platelet Volume 7.4; Monocytes # (A) 0.3 k/uL (0-1.0); Monocytes % (A) 4 %; Neutrophils # (A) 5.9 k/uL (1.3-7.7); Neutrophils % (A) 76 %; Platelet Count 192 k/uL (150-450); RBC 4.09 m/uL (3.80-5.40); RDW 13.2 % (11.5-15.5); WBC 7.8 k/uL (3.8-10.6)
[2019-04-23 11:36] LABS: ALT 13 U/L (4-34); AST 20 U/L (14-36); African American GFR (CKD) >90 (>60 ml/min/1.73 sqM); Albumin 3.5 g/dL (3.5-5.0); Alkaline Phosphatase 52 U/L (38-126); Anion Gap 8 mmol/L; Blood Urea Nitrogen 6 mg/dL (7-17); Calcium 9.3 mg/dL (8.4-10.2); Carbon Dioxide 21 mmol/L (22-30); Chloride 108 mmol/L (98-107); Glucose 72 mg/dL (74-99); Magnesium 1.7 mg/dL (1.6-2.3); Non-African American GFR(CKD) >90 (>60 ml/min/1.73 sqM); Potassium 4.1 mmol/L (3.5-5.1); Sodium 137 mmol/L (137-145); Total Bilirubin 0.5 mg/dL (0.2-1.3); Total Protein 6.6 g/dL (6.3-8.2)
[2019-04-23 11:39] LABS: Appearance,Urine Cloudy (Clear); Bacteria,Urine Rare /hpf; Bilirubin,Urine Negative (Negative); Blood,Urine Negative (Negative); Calcium Oxalate Crystals,Urine Few /hpf; Color,Urine Yellow; Glucose,Urine (UA) Negative (Negative); Ketones,Urine Negative (Negative); Leukocyte Esterase,Urine Large (Negative); Mucus,Urine Moderate /hpf; Nitrite,Urine Negative (Negative); Protein,Urine 1+ (Negative); RBC,Urine 2 /hpf (0-5); Specific Gravity,Urine 1.031 (1.001-1.035); Squamous Epithelial Cell,Urine 24 /hpf (0-4); Urobilinogen,Urine <2.0 mg/dL (<2.0); WBC,Urine 6 /hpf (0-5)
[2019-04-23 12:03] VITALS: BP 115/67; PULSE 73; TEMP 99
== END 2019-04-23 12:12 | disposition home or self-care (01) ==
LOC: EC 10:15
DX: O99.89 Other specified diseases and conditions complicating pregnancy, childbirth and the puerperium (principal); R42 Dizziness and giddiness; Z87.891 Personal history of nicotine dependence; Z3A.16 16 weeks gestation of pregnancy
CPT/HCPCS: 36415; 80053; 81001; 83735; 85025; 93005; 96360; 99284

== ENCOUNTER 2019-09-29 01:41 | Outpatient (CLI) | payer OTHER ==
[2019-09-29 04:03] VITALS: BP 147/68; PULSE 80; RESP 18; TEMP 97.8
--- NOTE | 2019-09-29 11:01 | P.MSEPDOC ---
Presenting Problems - Arrival Data Date of Arrival on Unit: 09/29/19 Time of Arrival on Unit: 01:41 Mode of Transport: Wheelchair - Complaint OB-Reason for Admission/Chief Complaint: Possible Onset of Labor Comment: c/o contractions/lower back pain starting around 2330. Medical History - Information : 6 Para: 5 Term: 5 : 0 Abortions: Spontaneous or Elective: 0 Number of Living Children: 5 - Gestational Age Gestational Age by AHMET (wks/days): 38 Weeks and 4 Days Review of Systems - Review of Systems Constitutional: No problems Breast: No problems ENT: No problems Cardiovascular: No problems Respiratory: No problems Gastrointestinal: No problems Genitourinary: No problems Musculoskeletal: No problems Neurological: No problems Skin: No problems Vital Signs - Temperature Temperature: 97.8 F Temperature Source: Oral - Pulse Right Pulse Rate: 80 Pulse Assessment Method: Automatic Cuff - Respirations Respiratory Rate: 18 Oxygen Delivery Method: Room Air - Blood Pressure Right Arm Blood Pressure: 147/68 Blood Pressure Mean: 94 Blood Pressure Source: Automatic Cuff Medical Screen Scoring (Pre) - Cervical Exam Dilation: 4-7 cm = 2 Effacement: Exam Deferred Membranes: Intact - Uterine Contractions Frequency: > or = 36 weeks =2 Duration: > 40 seconds = 2 Intensity: N/A - Maternal Vital Signs Maternal Temperature: N/A Maternal Blood Pressure: Systolic >139 = 2 Signs of Preeclampsia: N/A Maternal Respirations: N/A - Maternal Trauma Maternal Trauma: N/A - Assessment - Baby A Baseline FHR: 125 Heart Rate - NICHD Category: Category I (Normal) = 0 NST: Reactive Position: N/A Station: N/A - Total Score - Baby A Total Score - Baby A: 8 - Total Score - Baby B Total Score - Baby B: 8 - Total Score - Baby C Total Score - Baby C: 8 - Level of Risk - Baby A Level of Risk - Baby A: Medium (6-9) - Level of Risk - Baby B Level of Risk - Baby B: Medium (6-9) - Level of Risk - Baby C Level of Risk - Baby C: Medium (6-9) Physician Notification (Pre) - Physician Notified Physician Notified Date: 09/29/19 Physician Notified Time: 02:55 New Order Received: Yes (Give pt option to be rechecked in additional hour or d/c home.) Medical Screen Scoring (Post) - Cervical Exam Dilation: 4-7 cm = 2 Effacement: Exam Deferred Membranes: Intact - Uterine Contractions Frequency: > or = 36 weeks =2 Duration: > 40 seconds = 2 Intensity: N/A - Maternal Vital Signs Maternal Temperature: N/A Maternal Blood Pressure: Systolic >139 = 2 Signs of Preeclampsia: N/A Maternal Respirations: N/A - Pain Assessment Pain Location and Character: Abdomen Pain Scale Used: Numeric (1 - 10) Pain Intensity: 8 Pain Management Goal: 0 Pain Description: Tightness Pain Frequency: Intermittent Pain Duration Units: Minutes Pain Behavior: Vocalization Pain Aggravating Factors: Contractions - Maternal Trauma Maternal Trauma: N/A - Assessment - Baby A Heart Rate: 130 Heart Rate - NICHD Category: Category I (Normal) = 0 NST: Reactive Position: N/A Station: N/A - Total Score Total Score - Baby A: 8 Total Score - Baby B: 8 Total Score - Baby C: 8 - Post Treatment Level of Risk Post Treatment Level of Risk - Baby A: Medium (6-9) Post Treatment Level of Risk - Baby B: Medium (6-9) Post Treatment Level of Risk - Baby C: Medium (6-9) Physician Notification (Post) - Physician Notified Physician Notified Date: 09/29/19 Physician Notified Time: 02:55 Physician/Practitioner Notified:: Arturo Spoke With: Day New Order Received: (if no change pt clear for d/c home with instructions.) - Notification Comment Comment: no cervical change. Discharge instructions given and reviewed with pt and SO. Pt encouraged to return if contractions continue and become more instense, if thinks water has broken, or with additional concerns. Pt verbalizes understanding. Disposition - Disposition OB Disposition: Discharge to home Discharge Date: 09/29/19 Discharge Time: 03:47 I agree with the RN Medical Screening Exam: Yes Risk & Benefit of care provided described in d/c instruction: Yes Diagnosis: FALSE LABOR AT OR AFTER 37 COMPLETED WEEKS OF GESTATION
== END 2019-09-29 03:47 | disposition home or self-care (01) ==
LOC: FBPOP 01:41
PROVIDERS: ATTEND Obstetrics & Gynecology
DX: O47.1 False labor at or after 37 completed weeks of gestation (principal); Z3A.38 38 weeks gestation of pregnancy
CPT/HCPCS: 59025; G0463; 99213

== ENCOUNTER 2019-10-02 06:00 | Inpatient (IN) | payer OTHER ==
[2019-10-02] MEDS ORDERED: TERBUTALINE 1 MG/ML VIAL SQ PRN (06:48)
[2019-10-02] MEDS ORDERED: CARBOPROST TROMETHAMINE 250 MCG/ML 1 ML AMP IM PRN (06:48)
[2019-10-02] MEDS ORDERED: LIDOCAINE 0.5% (PF) 5 MG/ML (50 ML SDV) SQ PRN (06:48)
[2019-10-02] MEDS ORDERED: METHYLERGONOVINE 0.2 MG/ML 1 ML AMP IM PRN (06:48)
[2019-10-02] MEDS ORDERED: OXYTOCIN 10 UNIT/ML 1 ML VIAL IM PRN (06:48)
[2019-10-02] MEDS ORDERED: OXYTOCIN 30 UNITS/500 ML NS 30 UNIT in SALINE 1 500ML.BAG IV SCH (07:00)
[2019-10-02] MEDS: LACTATED RINGERS 1,000 ML IV SCH ×2 (07:10→10:31)
[2019-10-02 07:30] LABS: Basophils % (A) 0 %; Eosinophils # (A) 0.1 k/uL (0-0.7); Eosinophils % (A) 1 %; HCT 33.1 % (34.0-46.0); HGB 10.7 gm/dL (11.4-16.0); Lymphocytes # (A) 1.8 k/uL (1.0-4.8); Lymphocytes % (A) 18 %; MCH 28.6 pg (25.0-35.0); MCHC 32.5 g/dL (31.0-37.0); Mean Platelet Volume 7.9; Monocytes # (A) 0.5 k/uL (0-1.0); Monocytes % (A) 5 %; Neutrophils # (A) 7.5 k/uL (1.3-7.7); Neutrophils % (A) 74 %; Platelet Count 258 k/uL (150-450); RBC 3.76 m/uL (3.80-5.40); RDW 13.8 % (11.5-15.5); WBC 10.1 k/uL (3.8-10.6)
[2019-10-02] MEDS ORDERED: AMPICILLIN 1,000 MG in SODIUM CHLORIDE 0.9% 50 ML IVPB SCH (12:00)
[2019-10-02] MEDS ORDERED: HYDROCORTISONE 2.5% RECTAL CREAM 30 GM TUBE RECTAL PRN (15:48)
[2019-10-02] MEDS ORDERED: diphenhydrAMINE 50 MG CAP PO PRN (15:48)
[2019-10-02] MEDS ORDERED: diphenhydrAMINE 25 MG CAP PO PRN (15:48)
[2019-10-02] MEDS ORDERED: LANOLIN CREAM 5 GM TUBE TOPICAL PRN (15:48)
[2019-10-02] MEDS ORDERED: SIMETHICONE 80 MG CHEWABLE PO PRN (15:48)
[2019-10-02] MEDS ORDERED: BENZOCAINE/MENTHOL SPRAY 1 GM/SPRAY AEROSOL TOPICAL PRN (15:48)
[2019-10-02] MEDS ORDERED: WITCH HAZEL 1 EACH MED..PAD TOPICAL PRN (15:48)
[2019-10-02] MEDS ORDERED: ZOLPIDEM 5 MG TAB PO PRN (15:48)
[2019-10-02] MEDS ORDERED: ACETAMINOPHEN TAB 325 MG TAB PO PRN (15:48)
[2019-10-02] MEDS ORDERED: OXYTOCIN 20 UNITS/1000 ML NS 1,000 ML IV SCH (16:00)
--- NOTE | 2019-10-02 16:55 | P.HPOB ---
History of Present Illness H&P Date: 10/02/19 Chief Complaint: Intrauterine at term: Induction of labor Patient is a 34-year-old at 39 weeks gestation arise for induction of labor. Her course has been uncomplicated 5 advanced maternal age and she did see cardiology and maternal medicine but has done well through the remainder of the . At this time all questions are answered for her prior to starting induction. She did do nonstress tests and biophysical profiles blood pressure the as well. Pertinent labs include A+ blood type Rh and it was positive anti-LEEP [place] immune hepatitis B surface antigen was negative as well as RPR. Groupie strep was positive. Past Medical History Past Medical History: No Reported History History of Any Multi-Drug Resistant Organisms: None Reported Past Surgical History: No Surgical Hx Reported Past Anesthesia/Blood Transfusion Reactions: No Reported Reaction Past Psychological History: Anxiety, Depression Smoking Status: Never smoker Past Alcohol Use History: None Reported Past Drug Use History: None Reported - Past Family History Mother Family Medical History: No Reported History Medications and Allergies Home Medications Medication Instructions Recorded Confirmed Type No Known Home Medications 04/23/19 10/02/19 History Allergies Allergy/AdvReac Type Severity Reaction Status Date / Time No Known Allergies Allergy Verified 10/02/19 06:47 Exam Osteopathic Statement: *. No significant issues noted on an osteopathic structural exam other than those noted in the History and Physical/Consult. Vital Signs Temp Pulse Resp BP Pulse Ox 10/02/19 16:30 97.7 F 83 18 118/65 10/02/19 16:15 87 118/63 10/02/19 16:00 97.4 F L 78 18 122/69 10/02/19 15:45 83 118/57 10/02/19 15:30 98.0 F 96 18 125/59 10/02/19 06:47 96 F L 101 H 14 140/81 98 Intake and Output 10/02/19 10/02/19 10/02/19 06:59 14:59 22:59 Other: Weight 112.945 kg - OBG Physical Exam Breast: both: normal (no masses) Abdomen: Obese Abdomen: bowel sounds normal, no diffuse tenderness, no bruit present, no guarding noted, no hepatomegaly, no splenomegaly, no mass Vulva: both: normal Vagina: normal moisture, no discharge Cervix: no lesion, no discharge Uterus: normal size, normal contour Adnexa: both: normal Anus/Rectum: normal perianal skin, no rectal mass, no hemorrhoids, heme negative Results Result Diagrams: 10/02/19 07:10 Abnormal Lab Results - Last 24 Hours (Table) 10/02/19 Range/Units 07:10 RBC 3.76 L (3.80-5.40) m/uL Hgb 10.7 L (11.4-16.0) gm/dL Hct 33.1 L (34.0-46.0) %
--- NOTE | 2019-10-02 16:56 | P.PROBDLV ---
Vaginal Delivery Note - . Vaginal Delivery Note: Patient progressed complete and pushing and had an epidural which offered excellent pain relief. Once complete she did push one time and delivered the baby's head over an intact perineum from left docked and anterior position. Gentle downward traction was then applied to deliver the anterior and posterior shoulders followed by the remainder the baby. Mouth nares were then bulb suctioned and baby was placed on mother's abdomen where the umbilical cord was allowed to pulsate for 45 seconds prior to clamping and cutting. Nursery personnel was present and assumed care. Placenta was then delivered intact and Pitocin was added to the IV. scores were 9 and 9 at one and 5 minutes respectively and the weight was 8 lbs. 7 oz. Both mother and baby are stable following delivery.
[2019-10-02] MEDS: SENNOSIDES-DOCUSATE SODIUM 1 EACH TAB PO SCH (19:53)
[2019-10-02] MEDS: IBUPROFEN 600 MG TAB PO PRN (23:33)
[2019-10-03] MEDS: LACTATED RINGERS 1,000 ML IV SCH (00:36)
[2019-10-03 06:44] LABS: Basophils % (A) 0 %; Eosinophils # (A) 0.1 k/uL (0-0.7); Eosinophils % (A) 1 %; HGB 10.3 gm/dL (11.4-16.0); Lymphocytes # (A) 1.9 k/uL (1.0-4.8); Lymphocytes % (A) 16 %; MCH 28.4 pg (25.0-35.0); MCHC 32.1 g/dL (31.0-37.0); MCV 88.5 fL (80.0-100.0); Monocytes # (A) 0.7 k/uL (0-1.0); Monocytes % (A) 6 %; Neutrophils # (A) 9.3 k/uL (1.3-7.7); Neutrophils % (A) 75 %; Platelet Count 266 k/uL (150-450); RBC 3.61 m/uL (3.80-5.40); WBC 12.4 k/uL (3.8-10.6)
[2019-10-03 08:37] VITALS: BP 127/82; PULSE 76; RESP 17; TEMP 97.9
--- NOTE | 2019-10-03 08:51 | P.DS ---
Providers Date of admission: 10/02/19 06:34 Expected date of discharge: 10/03/19 Attending physician: Brennen Cooper Primary care physician: Stated None Hospital Course: This is a 34-year-old female 8 para 5 at 39 0/7 weeks who presented for induction of labor. She delivered vaginally a viable male on 10/02/2019 with scores of 9 at 1 minute and 9 at 5 minutes and weight of 8 lbs. 7 oz. Her course has been uncomplicated. Lochia is decreasing. Her pain is well-controlled. She is breast-feeding. Vital signs are stable. Abdomen is soft with fundus firm and nontender. Extremities show negative Homans. Impression is status post vaginal delivery day #1. Plan is to discharge home today. Routine instructions are given. She is advised to follow up with Dr. Cooper in 6 weeks in the office. She is advised to call the office if she has any further questions or concerns prior to her appointment time. She will be given a prescription for a breast pump and ibuprofen. Procedures: Oxytocin induction of labor Spontaneous vaginal delivery of a viable male infant on 10/02/2019 Patient Condition at Discharge: Stable Plan - Discharge Summary New Discharge Prescriptions: New Ibuprofen [Motrin] 600 mg PO Q6HR PRN #60 tab PRN Reason: Mild Pain Or Fever >= 100.5 Discharge Medication List Ibuprofen [Motrin] 600 mg PO Q6HR PRN #60 tab 10/03/19 [Rx] Follow up Appointment(s)/Referral(s): Brennen Cooper DO [Doctor of Osteopathic Medicine] - 1 Week Activity/Diet/Wound Care/Special Instructions: Instructions 1. Do not begin any exercise program for 3 weeks. 2. Do not resume sexual relations for 3 weeks or longer if uncomfortable. 3. You may take tub baths or showers at any time. 4. You may use tampons if desired after 3 weeks. 5. Keep the area of episiotomy (stitches) clean and dry. 6. If you are not nursing, wear a good fitting, supportive bra during the day and limit fluid intake for at least 1 week to prevent breast engorgement. 7. Call the office, [phone], within the next week to make appointment for your 6 week checkup if it has not already been made. 8. Report any of the following occurrences to the doctor promptly: a. Heavy, excessive bleeding b. Chills, fever c. Burning or frequency of urination d. Pain or redness and breasts if nursing e. Increasing pain or swelling in episiotomy (stitches). In addition to the above instructions, the following additional should be followed: 1. No heavy lifting or straining (exercising) until after 6 week checkup. 2. Keep abdominal incision clean and dry: You may wear a dressing if more comfortable. 3. Make office appointment for 10 days after going home or as instructed by her doctor. Discharge Disposition: HOME SELF-CARE
[2019-10-03] MEDS ORDERED: fentaNYL (PF) 50 MCG/ML 5 ML AMP ONE (10:48)
[2019-10-03] MEDS ORDERED: ROPIVACAINE 5MG/ML 20ML VIAL ONE (10:48)
[2019-10-03] MEDS ORDERED: SODIUM CHLORIDE 0.9% 100 ML BAG ONE (10:48)
[2019-10-03] MEDS: SENNOSIDES-DOCUSATE SODIUM 1 EACH TAB PO SCH (11:06)
[2019-10-03] MEDS: IBUPROFEN 600 MG TAB PO PRN (11:39)
== END 2019-10-03 15:45 | disposition home or self-care (01) | DRG 807 ==
LOC: 4FBP 06:34
PROVIDERS: ADMIT Obstetrics & Gynecology; ATTEND Obstetrics & Gynecology
PROC: 00HU33Z Insertion of Infusion Device into Spinal Canal, Percutaneous Approach (ICD-10-PCS; principal; 2019-10-02)
PROC: 10907ZC Drainage of Amniotic Fluid, Therapeutic from Products of Conception, Via Natural or Artificial Opening (ICD-10-PCS; principal; 2019-10-02)
PROC: 3E0R3BZ Introduction of Anesthetic Agent into Spinal Canal, Percutaneous Approach (ICD-10-PCS; principal; 2019-10-02)
PROC: 10E0XZZ Delivery of Products of Conception, External Approach (ICD-10-PCS; principal; 2019-10-02)
PROC: 3E033VJ Introduction of Other Hormone into Peripheral Vein, Percutaneous Approach (ICD-10-PCS; principal; 2019-10-02)
DX: O80 Encounter for full-term uncomplicated delivery (principal); Z37.0 Single live birth; Z3A.39 39 weeks gestation of pregnancy; Z86.59 Personal history of other mental and behavioral disorders
CPT/HCPCS: 85025; 86850; 86900; 86901

== ENCOUNTER 2019-10-11 22:39 | Inpatient (IN) | payer OTHER ==
--- NOTE | 2019-10-11 23:23 | ED ---
General Adult HPI - General Chief complaint: Vaginal Bleeding Stated complaint: Vaginal Bleeding Time Seen by Provider: 10/11/19 23:20 Source: patient Mode of arrival: ambulatory Limitations: no limitations - History of Present Illness Initial comments: Ana is a pleasant 34yo female who presents to the ER for evaluation of vaginal bleeding. Patient is 9 days she had an uncomplicated and vaginal with no complications. She did not have any sutures post . She reports that her bleeding had been improving and she didn't have any blood in her pad today however this evening she stood up to get in the shower passed a very large blood clot and then had some heavy bleeding. She has no chest pain and lightheadedness. She's not had any fainting spells. She reports she didn't have bleeding like this with previous pregnancies which is why she came in today. She denies any associated recent fevers chills abdominal pain nausea vomiting headaches or vision changes. - Related Data Previous Rx's Medication Instructions Recorded Ibuprofen [Motrin] 600 mg PO Q6HR PRN #60 tab 10/03/19 Allergies Allergy/AdvReac Type Severity Reaction Status Date / Time No Known Allergies Allergy Verified 10/11/19 23:00 Review of Systems ROS Statement: Those systems with pertinent positive or pertinent negative responses have been documented in the HPI. ROS Other: All systems not noted in ROS Statement are negative. Past Medical History Past Medical History: No Reported History History of Any Multi-Drug Resistant Organisms: None Reported Past Surgical History: No Surgical Hx Reported Past Anesthesia/Blood Transfusion Reactions: No Reported Reaction Past Psychological History: Anxiety, Depression Smoking Status: Never smoker Past Alcohol Use History: None Reported Past Drug Use History: None Reported - Past Family History Mother Family Medical History: No Reported History General Exam - General Exam Comments Initial Comments: Physical Exam GENERAL: Patient is well-developed and well-nourished. Patient is nontoxic and well-hydrated and is in no distress. HENT: Normocephalic, Atraumatic. EYES: PERRL, EOMI No conjunctival pallor PULMONARY: Unlabored respirations. CARDIOVASCULAR: RRR No tachycardia ABDOMEN: Soft and nontender SKIN: Skin is clear with no lesions or rashes and otherwise unremarkable. : Normal external genitalia Dark blood and vaginal vault Cervix is closed no significant active bleeding NEUROLOGIC: Patient is alert and oriented x3. Moving all extremities spontaneously MUSCULOSKELETAL: Normal extremities with adequate strength and full range of motion. No lower extremity swelling or edema. No calf tenderness. PSYCHIATRIC: Normal psychiatric evaluation. Limitations: no limitations Course Vital Signs 10/11/19 10/12/19 22:56 00:12 Temperature 98.0 F Pulse Rate 62 64 Respiratory 18 18 Rate Blood Pressure 175/101 168/85 O2 Sat by Pulse 98 98 Oximetry Medical Decision Making - Medical Decision Making Patient was seen and evaluated history is obtained from the patient excited patient presented for vaginal bleeding she is 9 days however was noted that she is profoundly hypertensive on arrival with blood pressure 175/110 A preeclampsia workup was initiated, pelvic exam showed dark blood in the vaginal vault no significant bleeding no large clots Labs resulted with mild elevation of LDH, urine was a clean catch not a straight cath and did have blood and trace protein labs are otherwise unremarkable Upon reevaluation patient remains persistently hypertensive with a blood pressure of 160/85 Patient care was discussed with OB Dr. Jerome who agrees this is consistent with possible preeclampsia recommends IV magnesium and admission to the labor and delivery floor - Lab Data Result diagrams: 10/11/19 23:41 10/11/19 23:41 Lab Results 10/11/19 10/11/19 10/11/19 Range/Units 23:40 23:41 23:41 WBC 6.9 (3.8-10.6) k/uL RBC 3.67 L (3.80-5.40) m/uL Hgb 10.7 L (11.4-16.0) gm/dL Hct 32.4 L (34.0-46.0) % MCV 88.2 (80.0-100.0) fL MCH 29.2 (25.0-35.0) pg MCHC 33.1 (31.0-37.0) g/dL RDW 14.1 (11.5-15.5) % Plt Count 341 (150-450) k/uL Neutrophils % 66 % Lymphocytes % 23 % Monocytes % 5 % Eosinophils % 3 % Basophils % 0 % Neutrophils # 4.5 (1.3-7.7) k/uL Lymphocytes # 1.6 (1.0-4.8) k/uL Monocytes # 0.3 (0-1.0) k/uL Eosinophils # 0.2 (0-0.7) k/uL Basophils # 0.0 (0-0.2) k/uL Sodium 140 (137-145) mmol/L Potassium 4.0 (3.5-5.1) mmol/L Chloride 113 H (98-107) mmol/L Carbon Dioxide 19 L (22-30) mmol/L Anion Gap 8 mmol/L BUN 17 (7-17) mg/dL Creatinine 0.77 (0.52-1.04) mg/dL Est GFR (CKD-EPI)AfAm >90 (>60 ml/min/1.73 sqM) Est GFR (CKD-EPI)NonAf >90 (>60 ml/min/1.73 sqM) Glucose 95 (74-99) mg/dL Uric Acid 6.8 (3.7-7.4) mg/dL Calcium 8.8 (8.4-10.2) mg/dL Total Bilirubin 0.4 (0.2-1.3) mg/dL AST 19 (14-36) U/L ALT 18 (4-34) U/L Alkaline Phosphatase 105 (38-126) U/L Lactate Dehydrogenase 667 H (313-618) U/L Total Protein 6.3 (6.3-8.2) g/dL Albumin 3.4 L (3.5-5.0) g/dL Urine Color Urine Appearance (Clear) Urine pH (5.0-8.0) Ur Specific [place] (1.001-1.035) Urine Protein (Negative) Urine Glucose (UA) (Negative) Urine Ketones (Negative) Urine Blood (Negative) Urine Nitrite (Negative) Urine Bilirubin (Negative) Urine Urobilinogen (<2.0) mg/dL Ur Leukocyte Esterase (Negative) Urine RBC (0-5) /hpf Urine WBC (0-5) /hpf Ur Squamous Epith Cells (0-4) /hpf Urine Mucus (None) /hpf Blood Type A Positive Blood Type Recheck A Pos Bld Type Recheck Status No Antibody Screen NEGATIVE Spec Expiration Date 10/14/2019 - 233910/11/19 Range/Units 23:44 WBC (3.8-10.6) k/uL RBC (3.80-5.40) m/uL Hgb (11.4-16.0) gm/dL Hct (34.0-46.0) % MCV (80.0-100.0) fL MCH (25.0-35.0) pg MCHC (31.0-37.0) g/dL RDW (11.5-15.5) % Plt Count (150-450) k/uL Neutrophils % % Lymphocytes % % Monocytes % % Eosinophils % % Basophils % % Neutrophils # (1.3-7.7) k/uL Lymphocytes # (1.0-4.8) k/uL Monocytes # (0-1.0) k/uL Eosinophils # (0-0.7) k/uL Basophils # (0-0.2) k/uL Sodium (137-145) mmol/L Potassium (3.5-5.1) mmol/L Chloride (98-107) mmol/L Carbon Dioxide (22-30) mmol/L Anion Gap mmol/L BUN (7-17) mg/dL Creatinine (0.52-1.04) mg/dL Est GFR (CKD-EPI)AfAm (>60 ml/min/1.73 sqM) Est GFR (CKD-EPI)NonAf (>60 ml/min/1.73 sqM) Glucose (74-99) mg/dL Uric Acid (3.7-7.4) mg/dL Calcium (8.4-10.2) mg/dL Total Bilirubin (0.2-1.3) mg/dL AST (14-36) U/L ALT (4-34) U/L Alkaline Phosphatase (38-126) U/L Lactate Dehydrogenase (313-618) U/L Total Protein (6.3-8.2) g/dL Albumin (3.5-5.0) g/dL Urine Color Yellow Urine Appearance Clear (Clear) Urine pH 6.0 (5.0-8.0) Ur Specific [place] 1.031 (1.001-1.035) Urine Protein Trace H (Negative) Urine Glucose (UA) Negative (Negative) Urine Ketones Negative (Negative) Urine Blood Large H (Negative) Urine Nitrite Negative (Negative) Urine Bilirubin Negative (Negative) Urine Urobilinogen 2.0 (<2.0) mg/dL Ur Leukocyte Esterase Small H (Negative) Urine RBC 4 (0-5) /hpf Urine WBC 3 (0-5) /hpf Ur Squamous Epith Cells <1 (0-4) /hpf Urine Mucus Moderate H (None) /hpf Blood Type Blood Type Recheck Bld Type Recheck Status Antibody Screen Spec Expiration Date Disposition Clinical Impression: Pre-eclampsia, Disposition: ADMITTED IP TO THIS HOSP Condition: Stable Is patient prescribed a controlled substance at d/c from ED?: No Referrals: Susan Burden MD [Primary Care Provider] - 1-2 days
[2019-10-11 23:58] LABS: Basophils % (A) 0 %; Eosinophils # (A) 0.2 k/uL (0-0.7); Eosinophils % (A) 3 %; HCT 32.4 % (34.0-46.0); HGB 10.7 gm/dL (11.4-16.0); Lymphocytes # (A) 1.6 k/uL (1.0-4.8); Lymphocytes % (A) 23 %; MCH 29.2 pg (25.0-35.0); MCHC 33.1 g/dL (31.0-37.0); MCV 88.2 fL (80.0-100.0); Mean Platelet Volume 7.1; Monocytes # (A) 0.3 k/uL (0-1.0); Monocytes % (A) 5 %; Neutrophils # (A) 4.5 k/uL (1.3-7.7); Neutrophils % (A) 66 %; Platelet Count 341 k/uL (150-450); RBC 3.67 m/uL (3.80-5.40); RDW 14.1 % (11.5-15.5); WBC 6.9 k/uL (3.8-10.6)
[2019-10-12] LABS: Appearance,Urine Clear (Clear); Bilirubin,Urine Negative (Negative); Blood,Urine Large (Negative); Color,Urine Yellow; Glucose,Urine (UA) Negative (Negative); Ketones,Urine Negative (Negative); Leukocyte Esterase,Urine Small (Negative); Mucus,Urine Moderate /hpf; Nitrite,Urine Negative (Negative); Protein,Urine Trace (Negative); RBC,Urine 4 /hpf (0-5); Specific Gravity,Urine 1.031 (1.001-1.035); Squamous Epithelial Cell,Urine <1 /hpf (0-4); WBC,Urine 3 /hpf (0-5)
[2019-10-12 00:08] LABS: ALT 18 U/L (4-34); AST 19 U/L (14-36); African American GFR (CKD) >90 (>60 ml/min/1.73 sqM); Albumin 3.4 g/dL (3.5-5.0); Alkaline Phosphatase 105 U/L (38-126); Anion Gap 8 mmol/L; Blood Urea Nitrogen 17 mg/dL (7-17); Calcium 8.8 mg/dL (8.4-10.2); Carbon Dioxide 19 mmol/L (22-30); Chloride 113 mmol/L (98-107); Glucose 95 mg/dL (74-99); LDH 667 U/L (313-618); Non-African American GFR(CKD) >90 (>60 ml/min/1.73 sqM); Sodium 140 mmol/L (137-145); Total Bilirubin 0.4 mg/dL (0.2-1.3); Total Protein 6.3 g/dL (6.3-8.2); Uric Acid 6.8 mg/dL (3.7-7.4)
[2019-10-12] MEDS ORDERED: SODIUM CHLORIDE 0.9% 1,000 ML IV STA (00:39)
[2019-10-12] MEDS ORDERED: MAGNESIUM SULFATE-WATER PMX 4 GM in WATER FOR INJECTION 1 100ML.BAG IVPB STA (00:39)
[2019-10-12] MEDS ORDERED: NALOXONE 0.4 MG/ML 1 ML VIAL IV PRN (00:40)
[2019-10-12] MEDS ORDERED: MAGNESIUM SULFATE-WATER PMX 20 GM in WATER FOR INJECTION 1 500ML.BAG IV SCH (00:45)
[2019-10-12] MEDS ORDERED: hydrALAZINE HCL 20 MG/ML 1 ML VIAL IVP STA (01:29)
[2019-10-12] MEDS ORDERED: CALCIUM GLUCONATE 1 GM/10 ML VIAL IV PRN (02:24)
--- NOTE | 2019-10-12 08:25 | P.HPOB ---
History of Present Illness H&P Date: 10/12/19 Chief Complaint: elevated BPs 34 year old pp day #10 from a vaginal delivery presented to the emergency room complaining of increased vaginal bleeding. The air conditioning in her house also went out last night and she had to sleep and air mattress, currently has some neck pain from that. The bleeding as assessed by the ER physician was minimal and emergency room. However, her blood pressures were elevated up to 170s over 90s. Preeclamptic labs were normal though they did not run a PC ratio. I was called for consultation and advised admission for observation and treatment with magnesium sulfate. Review of Systems All systems: negative Constitutional: Denies chills, Denies fever Eyes: denies blurred vision, denies pain Ears, nose, mouth and throat: Denies headache, Denies sore throat Cardiovascular: Denies chest pain, Denies shortness of breath Respiratory: Denies cough Gastrointestinal: Denies abdominal pain, Denies diarrhea, Denies nausea, Denies vomiting Genitourinary: Denies dysuria, Denies hematuria Musculoskeletal: Denies myalgias Integumentary: Denies pruritus, Denies rash Neurological: Denies numbness, Denies weakness Psychiatric: Denies anxiety, Denies depression Endocrine: Denies fatigue, Denies weight change Past Medical History Past Medical History: No Reported History History of Any Multi-Drug Resistant Organisms: None Reported Past Surgical History: No Surgical Hx Reported Past Anesthesia/Blood Transfusion Reactions: No Reported Reaction Past Psychological History: Anxiety, Depression Smoking Status: Never smoker Past Alcohol Use History: None Reported Past Drug Use History: None Reported - Past Family History Mother Family Medical History: No Reported History Medications and Allergies Home Medications Medication Instructions Recorded Confirmed Type RX: Ibuprofen [Motrin] 600 mg PO Q6HR PRN #60 tab 10/03/19 Rx Allergies Allergy/AdvReac Type Severity Reaction Status Date / Time No Known Allergies Allergy Verified 10/11/19 23:00 Exam Osteopathic Statement: *. No significant issues noted on an osteopathic structural exam other than those noted in the History and Physical/Consult. Vital Signs Temp Pulse Pulse Resp BP BP Pulse Ox 10/12/19 07:00 64 16 129/65 10/12/19 06:00 97.0 F L 62 18 121/59 100 10/12/19 05:00 62 18 129/69 100 10/12/19 04:10 53 L 16 136/81 100 10/12/19 03:10 61 16 129/69 10/12/19 02:42 63 18 129/70 10/12/19 02:35 64 18 130/73 10/12/19 02:25 97.0 F L 61 16 129/68 99 10/12/19 01:22 51 L 18 168/82 98 10/12/19 01:07 97.0 F L 61 16 129/68 99 10/12/19 00:12 64 18 168/85 98 10/11/19 22:56 98.0 F 62 18 175/101 98 Intake and Output 10/11/19 10/12/19 10/12/19 22:59 06:59 14:59 Intake Total 765 125 Output Total 1600 100 Balance -835 25 Intake: IV 375 75 Sodium Chloride 0.9% 1, 375 75 000 ml @ 75 mls/hr IV . [id number] STA Rx#:[id number] Intake, IV Titration 350 50 Amount Magnesium Sulfate-Water 250 50 Pmx 20 gm In Water For Injection 1 500ml.bag @ 2 GM/HR 50 mls/hr IV .Q10H ZHANG Rx#:[id number] Magnesium Sulfate-Water 100 Pmx 4 gm In Water For Injection 1 100ml.bag @ 300 mls/hr IVPB ONCE STA Rx#:[id number] Oral 40 Output: Urine 1600 100 Other: Weight 112.945 kg 112.945 kg Heart: Regular rate and rhythm Lungs: Clear to auscultation bilaterally Abdomen: Soft, nontender, fundus firm Extremities: Negative Homans sign Results Result Diagrams: 10/11/19 23:41 10/11/19 23:41 Abnormal Lab Results - Last 24 Hours (Table) 10/11/19 10/11/19 10/11/19 Range/Units 23:41 23:41 23:44 RBC 3.67 L (3.80-5.40) m/uL Hgb 10.7 L (11.4-16.0) gm/dL Hct 32.4 L (34.0-46.0) % Chloride 113 H (98-107) mmol/L Carbon Dioxide 19 L (22-30) mmol/L Lactate Dehydrogenase 667 H (313-618) U/L Albumin 3.4 L (3.5-5.0) g/dL Urine Protein Trace H (Negative) Urine Blood Large H (Negative) Ur Leukocyte Esterase Small H (Negative) Urine Mucus Moderate H (None) /hpf Assessment and Plan (1) Pre-eclampsia, Current Visit: Yes Status: Acute Code(s): O14.95 - UNSPECIFIED PRE- ECLAMPSIA, COMPLICATING THE PUERPERIUM SNOMED Code(s): 728507988 Plan: 1. Magnesium sulfate 4 g bolus and then 2 g an hour for 24 hours. 2. When the magnesium sulfate was stopped we will need to reassess her blood pressures to ensure she does not need blood pressure medicine. 3. The complete plan was discussed with the patient and she understood. Signs and symptoms of preeclampsia were reviewed with the patient.
[2019-10-12] MEDS: HYDROcodone/APAP 5-325MG 1 EACH TAB PO PRN ×2 (15:36→20:19)
[2019-10-13] MEDS: HYDROcodone/APAP 5-325MG 1 EACH TAB PO PRN (03:14)
--- NOTE | 2019-10-13 08:51 | P.DS ---
Providers Date of admission: 10/12/19 00:54 Expected date of discharge: 10/13/19 Attending physician: Kristy Jerome Primary care physician: Bertram Davis - Discharge Diagnosis(es) (1) Pre-eclampsia, Current Visit: Yes Status: Acute Hospital Course: Patient presented to the emergency room complaining of vaginal bleeding. Her vaginal bleeding has been scant here. In the ER her blood pressure is 1-170/90. She is admitted for preeclampsia and placed on magnesium sulfate for 24 hours. Her blood pressures did come down. After the magnesium sulfate was stopped her highest blood pressure was 140/70. She denies headache, nausea, vomiting, chest pain, shortness of breath, vision changes or right upper quadrant pain. She'll be discharged home after signs and symptoms of preeclampsia were reviewed again. She will follow-up with Dr. Santana later this week for blood pressure check. Patient Condition at Discharge: Stable Plan - Discharge Summary New Discharge Prescriptions: No Action Ibuprofen [Motrin] 600 mg PO Q6HR PRN #60 tab PRN Reason: Mild Pain Or Fever >= 100.5 Discharge Medication List Ibuprofen [Motrin] 600 mg PO Q6HR PRN #60 tab 10/03/19 [Rx] Follow up Appointment(s)/Referral(s): Susan Burden MD [Primary Care Provider] - 1-2 days Brennen Cooper DO [Doctor of Osteopathic Medicine] - 1 Week Discharge Disposition: HOME SELF-CARE
[2019-10-13 10:02] VITALS: BP 133/84; PULSE 67; RESP 18; TEMP 98.1
== END 2019-10-13 12:35 | disposition home or self-care (01) | DRG 776 ==
LOC: EC 22:39 → 4FBP 10-12 00:54 → OBSVTOIN 10-12 00:54 → 4FBP 10-12 01:50
PROVIDERS: ADMIT Obstetrics & Gynecology; ATTEND Obstetrics & Gynecology
DX: O15.2 Eclampsia complicating the puerperium (principal); Z86.59 Personal history of other mental and behavioral disorders
CPT/HCPCS: 36415; 80053; 81001; 83615; 84550; 85025; 86850; 86900; 86901; 96365; 96375; 99284

== ENCOUNTER 2020-07-05 22:29 | Emergency (ER) | payer OTHER ==
[2020-07-05 23:28] VITALS: BP 165/93; PULSE 94; RESP 18; TEMP 98.1
[2020-07-06 00:08] LABS: Appearance,Urine Turbid (Clear); Bilirubin,Urine Negative (Negative); Blood,Urine Large (Negative); Color,Urine Yellow; Glucose,Urine (UA) Negative (Negative); Ketones,Urine Negative (Negative); Leukocyte Esterase,Urine Large (Negative); Mucus,Urine Many /hpf; Nitrite,Urine Negative (Negative); Protein,Urine 2+ (Negative); RBC,Urine >182 /hpf (0-5); Specific Gravity,Urine 1.028 (1.001-1.035); Squamous Epithelial Cell,Urine 4 /hpf (0-4); Urobilinogen,Urine <2.0 mg/dL (<2.0)
[2020-07-06] MEDS ORDERED: AMOXICILLIN 875 MG TAB PO STA (00:55)
[2020-07-06] MEDS ORDERED: AMOXICILLIN 250 MG/5 ML 80 ML BOTTLE PO ONE (00:55)
--- NOTE | 2020-07-06 00:57 | ED ---
Female Urogenital HPI - General Chief complaint: Urogenital Stated complaint: UTI Time Seen by Provider: 07/06/20 00:52 Source: patient Mode of arrival: ambulatory Limitations: no limitations - Related Data Previous Rx's Medication Instructions Recorded Ibuprofen [Motrin] 600 mg PO Q6HR PRN #60 tab 10/03/19 Amoxicillin 500 mg PO Q8H #15 capsule 07/06/20 Allergies Allergy/AdvReac Type Severity Reaction Status Date / Time No Known Allergies Allergy Verified 07/05/20 23:28 Review of Systems ROS Statement: Those systems with pertinent positive or pertinent negative responses have been documented in the HPI. ROS Other: All systems not noted in ROS Statement are negative. Past Medical History Past Medical History: Hypertension History of Any Multi-Drug Resistant Organisms: None Reported Past Surgical History: No Surgical Hx Reported Past Anesthesia/Blood Transfusion Reactions: No Reported Reaction Past Psychological History: Anxiety, Depression Smoking Status: Never smoker Past Alcohol Use History: None Reported Past Drug Use History: Marijuana - Past Family History Mother Family Medical History: No Reported History General Exam Limitations: no limitations Course Vital Signs 07/05/20 23:26 Temperature 98.1 F Pulse Rate 94 Respiratory 18 Rate Blood Pressure 165/93 O2 Sat by Pulse 98 Oximetry Medical Decision Making - Lab Data Lab Results 07/05/20 07/05/20 Range/Units 23:29 23:29 Urine Color Yellow Urine Appearance Turbid H (Clear) Urine pH 6.0 (5.0-8.0) Ur Specific Calvin 1.028 (1.001-1.035) Urine Protein 2+ H (Negative) Urine Glucose (UA) Negative (Negative) Urine Ketones Negative (Negative) Urine Blood Large H (Negative) Urine Nitrite Negative (Negative) Urine Bilirubin Negative (Negative) Urine Urobilinogen <2.0 (<2.0) mg/dL Ur Leukocyte Esterase Large H (Negative) Urine RBC >182 H (0-5) /hpf Ur Squamous Epith Cells 4 (0-4) /hpf Urine Mucus Many H (None) /hpf Urine HCG, Qual Not Detected (Not Detectd) Disposition Clinical Impression: Urinary tract infection Disposition: HOME SELF-CARE Condition: Good Instructions (If sedation given, give patient instructions): Urinary Tract Infection in Women (ED) Prescriptions: Amoxicillin 500 mg PO Q8H #15 capsule Is patient prescribed a controlled substance at d/c from ED?: No Referrals: Bazo,Charbal B, MD [Primary Care Provider] - 1-2 days
== END 2020-07-06 01:20 | disposition home or self-care (01) ==
LOC: EC 22:29
DX: N39.0 Urinary tract infection, site not specified (principal); I10 Essential (primary) hypertension; F41.9 Anxiety disorder, unspecified; F32.9 Major depressive disorder, single episode, unspecified
CPT/HCPCS: 81001; 81025; 87086; 99283

== ENCOUNTER 2020-07-12 13:55 | Emergency (ER) | payer OTHER ==
[2020-07-12 14:24] VITALS: RESP 18; TEMP 98.2
[2020-07-12] MEDS ORDERED: KETOROLAC 15 MG/ML 1 ML VIAL IVP STA (15:02)
[2020-07-12] MEDS ORDERED: SODIUM CHLORIDE 0.9% 1,000 ML IV ONE (15:05)
[2020-07-12] MEDS ORDERED: PHENAZOPYRIDINE 200 MG TAB PO ONE (15:15)
[2020-07-12] MEDS ORDERED: FLUCONAZOLE 100 MG TAB PO ONE (15:15)
--- NOTE | 2020-07-12 15:29 | ED ---
Female Urogenital HPI - General Chief complaint: Urogenital Stated complaint: Abdominal Pain Time Seen by Provider: 07/12/20 14:53 Source: patient, RN notes reviewed Mode of arrival: ambulatory Limitations: no limitations - History of Present Illness Initial comments: This a 35-year-old female sent emergency Department chief complaint dysuria. Patient seen here was placed on antibiotics. Patient states that she received a phone call stating he was resistant. Patient states she's been on new antibiotic for a few days states is not helping which is now developed a yeast infection. Patient states that she is currently breast-feeding. No fevers or chills no flank pain. Patient states she has extreme urgency, frequency and dysuria. - Related Data Previous Rx's Medication Instructions Recorded Ibuprofen [Motrin] 600 mg PO Q6HR PRN #60 tab 10/03/19 Amoxicillin 500 mg PO Q8H #15 capsule 07/06/20 Fluconazole [Diflucan] 150 mg PO DAILY #5 tab 07/12/20 Phenazopyridine [Pyridium] 200 mg PO TID #6 tablet 07/12/20 Allergies Allergy/AdvReac Type Severity Reaction Status Date / Time No Known Allergies Allergy Verified 07/12/20 14:21 Review of Systems ROS Statement: Those systems with pertinent positive or pertinent negative responses have been documented in the HPI. ROS Other: All systems not noted in ROS Statement are negative. Past Medical History Past Medical History: Hypertension History of Any Multi-Drug Resistant Organisms: None Reported Past Surgical History: No Surgical Hx Reported Past Anesthesia/Blood Transfusion Reactions: No Reported Reaction Past Psychological History: Anxiety, Depression Smoking Status: Never smoker Past Alcohol Use History: None Reported Past Drug Use History: Marijuana - Past Family History Mother Family Medical History: No Reported History General Exam Limitations: no limitations General appearance: alert, in no apparent distress Head exam: Present: atraumatic, normocephalic, normal inspection Neck exam: Present: normal inspection. Absent: tenderness, meningismus, lymphadenopathy Respiratory exam: Present: normal lung sounds bilaterally. Absent: respiratory distress, wheezes, rales, rhonchi, stridor Cardiovascular Exam: Present: regular rate, normal rhythm, normal heart sounds. Absent: systolic murmur, diastolic murmur, rubs, gallop, clicks GI/Abdominal exam: Present: soft, normal bowel sounds. Absent: distended, tenderness, guarding, rebound, rigid Back exam: Absent: CVA tenderness (R), CVA tenderness (L) Neurological exam: Present: alert Course Vital Signs 07/12/20 14:21 Temperature 98.2 F Pulse Rate 83 Respiratory 18 Rate Blood Pressure 107/67 O2 Sat by Pulse 97 Oximetry Medical Decision Making - Medical Decision Making Patient's urinalysis is skewed by pyridium though patient does have evidence of urinary tract infection. Patient does have some underlying use infection we continued on Diflucan. Patient was given 2 g Rocephin emergency department she was hydrated. Patient will continue Macrobid as it is susceptible on urine culture currently. Patient advised not to keep wet rag in her vaginal region as his causes skin breakdown and irritation. - Lab Data Lab Results 07/12/20 07/12/20 Range/Units 14:50 14:50 Urine Color Dark Brown Urine Appearance Cloudy H (Clear) Urine pH 6.0 (5.0-8.0) Ur Specific [place] 1.032 (1.001-1.035) Urine Protein 1+ H (Negative) Urine Glucose (UA) Negative (Negative) Urine Ketones Negative (Negative) Urine Blood Moderate H (Negative) Urine Nitrite Positive H (Negative) Urine Bilirubin 2+ H (Negative) Urine Urobilinogen 8.0 (<2.0) mg/dL Ur Leukocyte Esterase Negative (Negative) Urine RBC 91 H (0-5) /hpf Urine WBC 11 H (0-5) /hpf Ur Squamous Epith Cells 3 (0-4) /hpf Urine Bacteria Rare H (None) /hpf Urine Mucus Moderate H (None) /hpf Urine HCG, Qual Not Detected (Not Detectd) Disposition Clinical Impression: Urinary tract infection, Vaginal candidiasis Disposition: HOME SELF-CARE Condition: Stable Instructions (If sedation given, give patient instructions): Urinary Tract Infection in Women (ED) Additional Instructions: Please return to the Emergency Department if symptoms worsen or any other concerns. Prescriptions: Fluconazole [Diflucan] 150 mg PO DAILY #5 tab Phenazopyridine [Pyridium] 200 mg PO TID #6 tablet Is patient prescribed a controlled substance at d/c from ED?: No Referrals: Susan Burden MD [Primary Care Provider] - 1-2 days Time of Disposition: 15:59
[2020-07-12 15:33] LABS: Appearance,Urine Cloudy (Clear); Bacteria,Urine Rare /hpf; Bilirubin,Urine 2+ (Negative); Blood,Urine Moderate (Negative); Color,Urine Dark Brown; Glucose,Urine (UA) Negative (Negative); Ketones,Urine Negative (Negative); Leukocyte Esterase,Urine Negative (Negative); Mucus,Urine Moderate /hpf; Nitrite,Urine Positive (Negative); Protein,Urine 1+ (Negative); RBC,Urine 91 /hpf (0-5); Specific Gravity,Urine 1.032 (1.001-1.035); Squamous Epithelial Cell,Urine 3 /hpf (0-4); WBC,Urine 11 /hpf (0-5)
[2020-07-12 16:31] VITALS: BP 135/81; PULSE 67
== END 2020-07-12 16:30 | disposition home or self-care (01) ==
LOC: EC 13:55
DX: B37.3 Candidiasis of vulva and vagina (principal); N39.0 Urinary tract infection, site not specified
CPT/HCPCS: 81001; 81025; 87086; 99283; 96365; 96375; 96361; J0696; J1885

== ENCOUNTER → 2020-09-08 | Outpatient (CLI) | payer OTHER ==
--- NOTE | 2020-09-09 08:15 | US ---
EXAMINATION TYPE: Transabdominal DATE OF EXAM: 09/08/2020 4:15 PM COMPARISON: NONE CLINICAL HISTORY: Z36 confirm dates. EXAM PERFORMED: Transabdominal (TA) EXAM MEASUREMENTS: GESTATIONAL AGE / DATING Physician Established: (11 weeks/5 days) EDC: 03/25/2021 Dates by First Scan: No previous this is first scan Dates by Current Scan for: (11 weeks/6 days) EDC: 03/24/2021 MATERNAL ANATOMY Uterus: 14.8 x 7.3 x 8.4 cm Right Ovary: 3.0 x 3.6 x 2.6 cm Left Ovary: 2.2 x 1.2 x 1.5 cm Post CDS / Adnexa: wnl Presence of free fluid: no Presence of corpus luteal cyst: cyst right ovary measuring 1.8 cm Presence of subchorionic bleed: no GESTATION / SURVEY CRL: 5.0 cm (11 weeks/6 days) Heart Rate: 143 bpm Rhythm: Normal IUP: Viable IUP Nuchal Translucency 10-14wks (normal less than 3mm): Date of LMP: Unsure Beta HcG (if available): Not available at this time Viable IUP, measurement consistent with dates IMPRESSION: 1. Single intrauterine with an average ultrasound gestational age of 11 weeks and 6 days. L ast menstrual period gestational age by dates is 11 weeks and 5 days. heart rate is 143 bpm. Cr own-rump length is 5 cm. Continued follow-up is recommended. 2. Probable right corpus luteum cyst measuring 1.8 cm.
== END | disposition home or self-care (01) ==
LOC: RADUSWWP 15:55
PROVIDERS: ATTEND Obstetrics & Gynecology
DX: Z36.89 Encounter for other specified antenatal screening (principal); O36.8310 Maternal care for abnormalities of the fetal heart rate or rhythm, first trimester, not applicable or unspecified; Z3A.11 11 weeks gestation of pregnancy
CPT/HCPCS: 76801

== ENCOUNTER 2020-12-02 17:24 | Outpatient (CLI) | payer OTHER ==
[2020-12-02 19:19] VITALS: BP 119/63; PULSE 81; RESP 18; TEMP 98.2
--- NOTE | 2020-12-11 12:39 | P.MSEPDOC ---
Presenting Problems - Arrival Data Date of Arrival on Unit: 12/02/20 Time of Arrival on Unit: 17:24 Mode of Transport: Ambulatory - Complaint OB-Reason for Admission/Chief Complaint: Acute Nausea/Vomiting Comment: N/V, diarrhea, fatigue, dizziness x 3 days Medical History - Information : 9 Para: 6 Term: 6 : 0 Abortions: Spontaneous or Elective: 2 Number of Living Children: 6 - Gestational Age Gestational Age by AHMET (wks/days): 23 Weeks and 6 Days - History Comment: elevated BP since last baby. Review of Systems - Review of Systems Constitutional: No problems Breast: No problems ENT: No problems Cardiovascular: No problems Respiratory: No problems Gastrointestinal: No problems Genitourinary: No problems Musculoskeletal: No problems Neurological: No problems Skin: No problems Vital Signs - Temperature Temperature: 98.2 F Temperature Source: Axillary - Pulse Right Pulse Oximetery Pulse Rate: 81 Pulse Assessment Method: Pulse Oximetry - Respirations Respiratory Rate: 18 Oxygen Delivery Method: Room Air O2 Sat by Pulse Oximetry: 95 - Blood Pressure Right Arm Blood Pressure: 119/63 Blood Pressure Mean: 81 Blood Pressure Source: Automatic Cuff Medical Screen Scoring - Assessment - Baby A Baseline FHR: 145 Heart Rate - NICHD Category: Category I (Normal) Physician Notification - Physician Notified Physician Notified Date: 12/02/20 Physician Notified Time: 17:39 Physician: Kristy Jerome Order Received: Yes (oral hydrate and covid swab) Maternal Triage Index - Maternal Triage Index Presenting for scheduled procedure w/no complaint: No - Stat/Priority 1 Stat Priority 1: No - Urgent/Priority 2 Urgent Priority 2: No - Prompt/Priority 3 Prompt Priority 3: No - Non-Urgent/Priority 4 Non-Urgent Priority 4: Yes Criteria Met for Priority 4: nausea/diarrhea/dizziness Disposition - Disposition OB Disposition: Discharge to home Discharge Date: 12/02/20 Discharge Time: 19:05 I agree with the RN Medical Screening Exam: Yes Case reviewed; plan agreed upon as documented in EMR&OBIX.: Yes Diagnosis: DEHYDRATION
== END 2020-12-02 19:05 | disposition home or self-care (01) ==
LOC: FBPOP 17:24
PROVIDERS: ATTEND Obstetrics & Gynecology
DX: O99.282 Endocrine, nutritional and metabolic diseases complicating pregnancy, second trimester (principal); E86.0 Dehydration; Z3A.23 23 weeks gestation of pregnancy
CPT/HCPCS: 87635; G0463; 99213

== ENCOUNTER 2021-03-15 11:53 | Outpatient (CLI) | payer OTHER ==
[2021-03-15 14:43] VITALS: BP 130/70; PULSE 82; RESP 16; TEMP 97.9
--- NOTE | 2021-03-15 14:52 | US ---
EXAMINATION TYPE: US OB BPP wo non-stress DATE OF EXAM: 03/15/2021 COMPARISON: NONE CLINICAL HISTORY: non reactive non stress test. EXAM PERFORMED: Transabdominal (TA) BPP PARAMETERS: PRESENTATION: Vertex LIE: Longitudinal?? HEART RATE: 128 bpm RHYTHM: Normal MARS: 12.9cm DIAPHRAGM IMAGED: yes BPP SCORIN. Breathin (1 episode of breathing of 30 second duration in 30 minutes of scanning time) 2. Movement: 2 (at least 3 discrete body movements in 30 minutes) 3. Tone: 2 (1 episode of active flexion/extension of limb) 4. MARS: 2 (MARS index > 5cm) TOTAL SCORE: 8 / 8
== END 2021-03-15 14:15 | disposition home or self-care (01) ==
LOC: FBPOP 11:53
PROVIDERS: ATTEND Obstetrics & Gynecology
DX: Z34.83 Encounter for supervision of other normal pregnancy, third trimester (principal)
CPT/HCPCS: 59025; 76819

== ENCOUNTER 2021-03-18 06:00 | Inpatient (IN) | payer OTHER ==
[2021-03-18] MEDS ORDERED: LIDOCAINE 0.5% (PF) 5 MG/ML (50 ML SDV) SQ PRN (06:40)
[2021-03-18] MEDS ORDERED: OXYTOCIN 10 UNIT/ML 1 ML VIAL IM PRN (06:40)
[2021-03-18] MEDS ORDERED: METHYLERGONOVINE 0.2 MG/ML 1 ML AMP IM PRN (06:40)
[2021-03-18] MEDS ORDERED: TERBUTALINE 1 MG/ML VIAL SQ PRN (06:40)
[2021-03-18] MEDS ORDERED: CARBOPROST TROMETHAMINE 250 MCG/ML 1 ML AMP IM PRN (06:40)
[2021-03-18] MEDS ORDERED: AMPICILLIN 2,000 MG in SODIUM CHLORIDE 0.9% 100 ML IVPB STA (06:45)
[2021-03-18] MEDS ORDERED: OXYTOCIN 30 UNITS/500 ML NS 30 UNIT in SALINE 1 500ML.BAG IV SCH (06:45)
[2021-03-18] MEDS: LACTATED RINGERS 1,000 ML IV SCH ×2 (06:55→11:04)
[2021-03-18 06:59] LABS: Basophils % (A) 0 %; Eosinophils # (A) 0.1 k/uL (0-0.7); Eosinophils % (A) 1 %; HCT 34.8 % (34.0-46.0); HGB 11.7 gm/dL (11.4-16.0); Lymphocytes # (A) 1.4 k/uL (1.0-4.8); Lymphocytes % (A) 15 %; MCH 29.9 pg (25.0-35.0); MCHC 33.6 g/dL (31.0-37.0); MCV 88.8 fL (80.0-100.0); Mean Platelet Volume 7.8; Monocytes # (A) 0.4 k/uL (0-1.0); Monocytes % (A) 4 %; Neutrophils # (A) 7.6 k/uL (1.3-7.7); Neutrophils % (A) 79 %; Platelet Count 216 k/uL (150-450); RBC 3.92 m/uL (3.80-5.40); RDW 13.3 % (11.5-15.5); WBC 9.7 k/uL (3.8-10.6)
--- NOTE | 2021-03-18 09:25 | P.HPOB ---
History of Present Illness H&P Date: 03/18/21 Chief Complaint: Intrauterine at term: Induction of labor Patient is a 35-year-old at 39 weeks gestation arise for induction of labor. Her course has been unremarkable. She does have a history of hypertension but her blood pressures remained stable throughout the . We did comanage with maternal- medicine for her . She did take a antihypertensive through the . Nonstress tests her bladder for the was complicated with baths profiles have been normal. Pertinent labs include A+ blood type, Rh and it was negative, rubella was immune, hepatitis B surface antigen/RPR and HIV were negative but groupie strep is positive. We'll plan groupie strep prophylaxis. All questions are answered for her prior to the induction. A category 1 tracing is noted. She is dilated to 3 center 70% effaced and -2 station. Clear fluid is noted following artificial rupture membranes. Past Medical History Past Medical History: Hypertension History of Any Multi-Drug Resistant Organisms: None Reported Past Surgical History: No Surgical Hx Reported Past Anesthesia/Blood Transfusion Reactions: No Reported Reaction Past Psychological History: Anxiety, Depression Smoking Status: Never smoker Past Alcohol Use History: None Reported Past Drug Use History: None Reported - Past Family History Mother Family Medical History: No Reported History Medications and Allergies Home Medications Medication Instructions Recorded Confirmed Type Aspirin 81 mg PO DAILY 12/02/20 03/18/21 History Pnv No.95/Ferrous Fum/Folic AC 1 each PO DAILY 12/02/20 03/18/21 History [ Multivitamin Tablet] Propranolol [Inderal] 20 mg PO BID 12/02/20 03/18/21 History Allergies Allergy/AdvReac Type Severity Reaction Status Date / Time No Known Allergies Allergy Verified 03/18/21 06:38 Exam Osteopathic Statement: *. No significant issues noted on an osteopathic structural exam other than those noted in the History and Physical/Consult. Vital Signs Temp Pulse Resp BP Pulse Ox 03/18/21 06:38 96.6 F L 81 16 132/71 100 Intake and Output 03/17/21 03/18/21 03/18/21 22:59 06:59 14:59 Other: Weight 117.934 kg - OBG Physical Exam Breast: both: normal (no masses) Abdomen: Obese Abdomen: bowel sounds normal, no diffuse tenderness, no bruit present, no guarding noted, no hepatomegaly, no splenomegaly, no mass Vulva: both: normal Vagina: normal moisture, no discharge Cervix: no lesion, no discharge Uterus: normal size, normal contour Adnexa: both: normal Anus/Rectum: normal perianal skin, no rectal mass, no hemorrhoids, heme negative Results Result Diagrams: 03/18/21 06:45
[2021-03-18] MEDS ORDERED: SODIUM CHLORIDE 0.9% 100 ML BAG ONE (09:39)
[2021-03-18] MEDS ORDERED: fentaNYL (PF) 50 MCG/ML 5 ML AMP ONE (09:39)
[2021-03-18] MEDS ORDERED: ROPIVACAINE 5MG/ML 20ML VIAL ONE (09:39)
[2021-03-18] MEDS ORDERED: AMPICILLIN 1,000 MG in SODIUM CHLORIDE 0.9% 50 ML IVPB SCH (11:00)
[2021-03-18] MEDS ORDERED: diphenhydrAMINE 25 MG CAP PO PRN (12:42)
[2021-03-18] MEDS ORDERED: SIMETHICONE 80 MG CHEWABLE PO PRN (12:42)
[2021-03-18] MEDS ORDERED: diphenhydrAMINE 50 MG CAP PO PRN (12:42)
[2021-03-18] MEDS ORDERED: BENZOCAINE/MENTHOL SPRAY 1 GM/SPRAY AEROSOL TOPICAL PRN (12:42)
[2021-03-18] MEDS ORDERED: ACETAMINOPHEN TAB 325 MG TAB PO PRN (12:42)
[2021-03-18] MEDS ORDERED: HYDROCORTISONE 2.5% RECTAL CREAM 30 GM TUBE RECTAL PRN (12:42)
[2021-03-18] MEDS ORDERED: diphenhydrAMINE 50 MG/ML 1 ML VIAL IVP PRN ×2 (12:42)
[2021-03-18] MEDS ORDERED: LANOLIN CREAM 5 GM TUBE TOPICAL PRN (12:42)
[2021-03-18] MEDS ORDERED: ZOLPIDEM 5 MG TAB PO PRN (12:42)
--- NOTE | 2021-03-18 12:44 | P.PROBDLV ---
Vaginal Delivery Note - . Vaginal Delivery Note: Patient progressed complete and pushing with spontaneous vaginal delivery of a viable female over an intact perineum. Falling deliver the head a nuchal cord 1 was easily reduced from left occiput anterior position. Anterior and posterior shoulders were then easily delivered followed by the remainder of the baby. Mouth and nares were then bulb suctioned and baby was placed on mother's abdomen where the umbilical cords left pulsate for 30 seconds prior to clamping and cutting. Nursery personnel was present and assumed care. Placenta was then delivered intact Pitocin was added to the IV. scores 9 and 9 at one and 5 minutes respectively weight is pending. Both mother and baby however appear stable following delivery.
[2021-03-18] MEDS: IBUPROFEN 600 MG TAB PO SCH ×3 (13:38→20:56)
[2021-03-18] MEDS: SENNOSIDES-DOCUSATE SODIUM 1 EACH TAB PO SCH (20:22)
[2021-03-18] MEDS: PROPRANOLOL 20 MG TAB PO SCH (20:23)
[2021-03-18] MEDS ORDERED: METOPROLOL TARTRATE 25 MG TAB PO SCH (21:00)
--- NOTE | 2021-03-19 07:53 | P.DS ---
Providers Date of admission: 03/18/21 06:25 Expected date of discharge: 03/19/21 Attending physician: Brennen Cooper Primary care physician: Stated None Hospital Course: Patient is doing very well day 1. She is involuting, voiding and tolerating her diet. She voices no complaints and is requesting discharge home today. Her vital signs are stable and she is afebrile. She will continue the propranolol and Motrin for pain moving forward. She'll follow up with us in 6 weeks as long she is doing well. Should she need refill on her propranolol I were her primary care provider can refill it. All the questions are answered for her at this time. Heart regular, lungs clear, extremities are without pain. Abdomen soft and uterus is firm. Lochia is reported be light. Assessment post day 1. Plan discharged home follow up in 6 weeks. Patient Condition at Discharge: Good Plan - Discharge Summary New Discharge Prescriptions: New Ibuprofen [Motrin] 600 mg PO Q6HR PRN #30 tab PRN Reason: Pain No Action RX: Aspirin 81 mg PO DAILY Propranolol [Inderal] 20 mg PO BID Pnv No.95/Ferrous Fum/Folic AC [ Multivitamin Tablet] 1 each PO DAILY Discharge Medication List Pnv No.95/Ferrous Fum/Folic AC [ Multivitamin Tablet] 1 each PO DAILY 12/02/20 [History] Propranolol [Inderal] 20 mg PO BID 12/02/20 [History] RX: Aspirin 81 mg PO DAILY 12/02/20 [History] Ibuprofen [Motrin] 600 mg PO Q6HR PRN #30 tab 03/19/21 [Rx] Follow up Appointment(s)/Referral(s): Brennen Cooper DO [Doctor of Osteopathic Medicine] - 05/03/21 11:00 am Activity/Diet/Wound Care/Special Instructions: No heavy Lifting, limit stairs and driving, and pelvic rest. If any high temperatures, heavy bleeding or severe pain call my office Discharge Disposition: HOME SELF-CARE
[2021-03-19] MEDS: PROPRANOLOL 20 MG TAB PO SCH (09:29)
[2021-03-19] MEDS: SENNOSIDES-DOCUSATE SODIUM 1 EACH TAB PO SCH (09:29)
[2021-03-19] MEDS: IBUPROFEN 600 MG TAB PO SCH (09:30)
[2021-03-19 09:51] VITALS: BP 118/60; PULSE 72; RESP 14; TEMP 98.2
== END 2021-03-19 15:36 | disposition home or self-care (01) | DRG 807 ==
LOC: 4FBP 06:25
PROVIDERS: ADMIT Obstetrics & Gynecology; ATTEND Obstetrics & Gynecology
PROC: 10E0XZZ Delivery of Products of Conception, External Approach (ICD-10-PCS; principal; 2021-03-18)
PROC: 10907ZC Drainage of Amniotic Fluid, Therapeutic from Products of Conception, Via Natural or Artificial Opening (ICD-10-PCS; 2021-03-18)
PROC: 3E033VJ Introduction of Other Hormone into Peripheral Vein, Percutaneous Approach (ICD-10-PCS; 2021-03-18)
DX: O99.824 Streptococcus B carrier state complicating childbirth (principal); O99.344 Other mental disorders complicating childbirth; O69.81X0 Labor and delivery complicated by cord around neck, without compression, not applicable or unspecified; I10 Essential (primary) hypertension; O16.4 Unspecified maternal hypertension, complicating childbirth; O26.893 Other specified pregnancy related conditions, third trimester; Z37.0 Single live birth; Z67.41 Type O blood, Rh negative; F41.9 Anxiety disorder, unspecified; F32.A Depression, unspecified; Z3A.39 39 weeks gestation of pregnancy; Z79.82 Long term (current) use of aspirin; Z79.899 Other long term (current) drug therapy
CPT/HCPCS: 85025; 86850; 86870; 86880; 86900; 86901; 86902

== ENCOUNTER 2021-07-02 06:16 | Day surgery (SDC) | payer OTHER ==
[~2021-07-02 06:16] MED LIST: DEXAMETHASONE SOD PHOSPHATE 4 MG/ML 1 ML VIAL IV ONE; HYDROmorphone 0.5 MG/0.5 ML SYRINGE IVP PRN; LACTATED RINGERS 1,000 ML IV SCH; LIDOCAINE 1% (10MG/ML) FOR IV START INTRADERMA PRN; MIDAZOLAM 2 MG/2 ML VIAL IV PRN; ONDANSETRON 4 MG/2 ML VIAL IVP ONE; Pre Op ABX Message 1 EACH MISC MISCELLANE ONE
--- NOTE | 2021-07-02 06:27 | P.HPOB ---
History of Present Illness H&P Date: 07/02/21 Chief Complaint: family planning 36 year old presents for laparoscopic tubal ligation. Review of Systems All systems: negative Constitutional: Denies chills, Denies fever Eyes: denies blurred vision, denies pain Ears, nose, mouth and throat: Denies headache, Denies sore throat Cardiovascular: Denies chest pain, Denies shortness of breath Respiratory: Denies cough Gastrointestinal: Denies abdominal pain, Denies diarrhea, Denies nausea, Denies vomiting Genitourinary: Denies dysuria, Denies hematuria Musculoskeletal: Denies myalgias Integumentary: Denies pruritus, Denies rash Neurological: Denies numbness, Denies weakness Psychiatric: Denies anxiety, Denies depression Endocrine: Denies fatigue, Denies weight change Past Medical History Past Medical History: Hypertension History of Any Multi-Drug Resistant Organisms: None Reported Past Surgical History: No Surgical Hx Reported Past Anesthesia/Blood Transfusion Reactions: No Reported Reaction, Motion Sickness Additional Past Anesthesia/Blood Transfusion Reaction / Comment(s): HAS NEVER GENERAL ANESTHESIA Past Psychological History: Anxiety, Depression Smoking Status: Never smoker Past Alcohol Use History: None Reported Past Drug Use History: None Reported - Past Family History Mother Family Medical History: No Reported History Medications and Allergies Home Medications Medication Instructions Recorded Confirmed Type Propranolol [Inderal] 20 mg PO BID 12/02/20 06/30/21 History Ibuprofen [Motrin] 600 mg PO Q6HR PRN #30 tab 03/19/21 06/30/21 Rx Allergies Allergy/AdvReac Type Severity Reaction Status Date / Time No Known Allergies Allergy Verified 06/30/21 10:13 Exam Osteopathic Statement: *. No significant issues noted on an osteopathic structural exam other than those noted in the History and Physical/Consult. HEart: RRR Lungs: CTAB Abdomen: soft, nontender Extremeties: neg yissel's Assessment and Plan (1) Family planning Current Visit: Yes Status: Acute Code(s): Z30.09 - ENCOUNTER FOR OTH GENERAL CNSL AND ADVICE ON CONTRACEPTION SNOMED Code(s): 076455527 Plan: 1. laparoscopic tubal ligation
[2021-07-02] MEDS ORDERED: SCOPOLAMINE 1.5MG/72HR PATCH TRANSDERM ONE (07:05)
[2021-07-02] MEDS ORDERED: fentaNYL (PF) 50 MCG/ML 2 ML AMP ONE (07:27)
[2021-07-02] MEDS ORDERED: GLYCOPYRROLATE 0.2 MG/ML 2 ML VIAL ONE (07:27)
[2021-07-02] MEDS ORDERED: KETOROLAC 15 MG/ML 1 ML VIAL ONE (07:27)
[2021-07-02] MEDS ORDERED: NEOSTIGMINE 1 MG/ML 10 ML VIAL ONE (07:27)
[2021-07-02] MEDS ORDERED: LIDOCAINE 1% INJ 10MG/ML (20 ML MDV) ONE (07:27)
[2021-07-02] MEDS ORDERED: SUCCINYLCHOLINE CHLORIDE 100 MG/5 ML SYR IV ONE (07:27)
[2021-07-02] MEDS ORDERED: PROPOFOL 10 MG/ML 20 ML VIAL IV ONE (07:27)
[2021-07-02] MEDS ORDERED: ROCURONIUM 10 MG/ML (5 ML VIAL) IV ONE (07:27)
[2021-07-02] MEDS ORDERED: BUPIVACAINE (PF) 0.25% 30 ML VIAL SQ ONE (07:52)
[2021-07-02 08:38] VITALS: TEMP 97.8
[2021-07-02] MEDS ORDERED: ONDANSETRON 4 MG/2 ML VIAL IVP ONE (08:53)
--- NOTE | 2021-07-02 08:58 | P.OP ---
Date of Procedure: 07/02/21 Preoperative Diagnosis: 1. family planning Postoperative Diagnosis: 1. family planning Procedure(s) Performed: Laparoscopic Tubal ligation Anesthesia: ANNE MARIE Surgeon: Kristy Jerome Estimated Blood Loss (ml): 5 IV fluids (ml): 300 Urine output (ml): 10 Pathology: none sent Condition: stable Disposition: PACU Operative Findings: normal uterus, tubes and ovaries. Description of Procedure: Patient was taken to the operating room where general anesthesia was obtained without difficulty. She was prepped and draped in normal sterile fashion in the dorsal lithotomy position, legs placed in the Jason stirrups. Bladder drained of all urine. Royston speculum placed in the vagina and the anterior lip the cervix was grasped with single-tooth tenaculum. The uterus is sounded to 9 cm and the kroner manipulator was placed. Attention was then turned to the abdomen and gloves were changed. A 10 mm infraumbilical incision was made the scalpel and 10 mm optical trocar was attempted to be placed under direct visualization. After several attempts I aborted this method. Is having some difficulty getting into her abdomen due to her body habitus. I consulted general surgeon, Dr. ponce, came in and placed a veress needle in the left upper quadrant and filled the abdomen with air. A 5 mm optical trocar was placed through the left upper quadrant. Another 5 mm port was placed through the umbilical incision. Survey of the pelvis revealed normal uterus tubes and ovaries. The left fallopian tube was grasped with a Kleppinger and fulgurated 2-3 cm on this side in the ampullar portion. The right fallopian tube was grasped with a Kleppinger and fulgurated 2-3 cm in the ampullar portion. All instruments were then removed from the abdomen and vagina. The 10 mm infraumbilical incision was closed with 0 Vicryl and the fascial layer and then 4-0 Vicryl in a subcuticular fashion. The 5 mm incision was closed with 4-0 Vicryl in a subcuticular fashion. Patient tolerated procedure well, sponge and instrument counts correct 2 and she was taken to recovery room in stable condition.
[2021-07-02] MEDS ORDERED: LACTATED RINGERS 1,000 ML IV ONE (09:01)
--- NOTE | 2021-07-02 09:50 | P.OP ---
Date of Procedure: 07/02/21 Preoperative Diagnosis: Family planning Postoperative Diagnosis: Family planning Procedure(s) Performed: Diagnostic laparoscopy Anesthesia: ANNE MARIE Surgeon: Camacho Duque Rotary Drill Operator #1: Kristy Jerome Estimated Blood Loss (ml): 3 Pathology: none sent Condition: stable Disposition: PACU Description of Procedure: I was called to the room to assist Dr. Jerome. She was unable to enter the peritoneal cavity. The patient had a 10 mm trocar attempt in the infraumbilical position. Dr. Nieto was unsuccessful and peritoneal cavity. There was a 10 mm incision in the infraumbilical position as well as a towel clip on the lower anterior abdominal wall. At this point I used an 11 blade and made a small 5 mm incision in the left upper quadrant. The Veress needle was placed. Cavity. Position of the Veress needle was confirmed with positive drop test. The abdomen was insufflated with CO2. Next using a optical 5 mm trocar under direct vision the peritoneal cavity is entered. The abdominal wall was examined. On Dr. eJrome appeared to have had placed the trocar the preperitoneal position in the left lower quadrant. There is some bruising to the peritoneum in the left lower quadrant. There was no penetration of the peritoneum. At this point Dr. Jerome was able to place a 10 mm trocar at the umbilicus.. Please see her operative note. I left the case at this point.
[2021-07-02 10:52] VITALS: RESP 16
[2021-07-02 11:46] VITALS: BP 142/68; PULSE 52
== END 2021-07-02 11:50 | disposition home or self-care (01) ==
LOC: OR 06:16
PROVIDERS: ATTEND Obstetrics & Gynecology
DX: Z30.2 Encounter for sterilization (principal); F41.9 Anxiety disorder, unspecified; F32.A Depression, unspecified; E66.01 Morbid (severe) obesity due to excess calories; Z68.42 Body mass index [BMI] 45.0-49.9, adult; Z79.899 Other long term (current) drug therapy
CPT/HCPCS: 81025; 58670; J1100; J2710; J2405; J2001; J3010; J1885; J0330; J2704; J1170; J1790

== ENCOUNTER → 2023-04-21 | Outpatient (CLI) | payer OTHER ==
[2023-04-21 14:28] LABS: Basophils # (A) 0.04 X 10*3/uL (0.00-0.10); Basophils % (A) 0.7 %; Eosinophils # (A) 0.23 X 10*3/uL (0.04-0.35); Eosinophils % (A) 3.7 %; HCT 36.3 % (37.2-46.3); HGB 12.1 g/dL (12.0-15.0); Lymphocytes # (A) 1.26 X 10*3/uL (0.90-5.00); Lymphocytes % (A) 20.5 %; MCH 28.1 pg (27.0-32.0); MCHC 33.3 g/dL (32.0-37.0); MCV 84.4 FL (80.0-97.0); Mean Platelet Volume 10.2 FL (9.5-12.2); Monocytes # (A) 0.34 X 10*3/uL (0.20-1.00); Monocytes % (A) 5.5 %; NRBC Per 100 WBC 0 X 10*3/uL (0.00-0.01); Neutrophils # (A) 4.25 X 10*3/uL (1.80-7.70); Neutrophils % (A) 69.1 %; Platelet Count 206 X 10*3/uL (140-440); RDW 13.2 % (11.5-14.5); WBC 6.15 X 10*3/uL (4.50-10.00)
[2023-04-21 15:14] LABS: ALT 17 U/L (8-44); AST 15 U/L (13-35); Albumin 4.2 g/dL (3.8-4.9); Alkaline Phosphatase 84 U/L (41-126); BUN/Creat Ratio 14.75 Ratio (12.00-20.00); Blood Urea Nitrogen 11.8 mg/dL (9.0-27.0); Calcium 9.4 mg/dL (8.7-10.3); Carbon Dioxide 22.7 mmol/L (21.6-31.8); Chloride 108 mmol/L (96-109); Chol/HDL Ratio 2.99 Ratio; Globulin 2.8 g/dL (1.6-3.3); Glucose 100 mg/dL (70-110); LDL Cholesterol,Calculated 92.7 mg/dL (0.0-131.0); Potassium 4.2 mmol/L (3.5-5.5); Sodium 141 mmol/L (135-145); Total Bilirubin 0.6 mg/dL (0.3-1.2); VLDL Calculation 15.08 mg/dL (5.00-40.00)
== END | disposition home or self-care (01) ==
LOC: LABPAT 08:59
PROVIDERS: ATTEND Obstetrics & Gynecology
DX: Z01.818 Encounter for other preprocedural examination (principal)
CPT/HCPCS: 80053; 80061; 82306; 83036; 84439; 84443; 85025; 93005

== ENCOUNTER 2023-04-24 06:44 | Day surgery (SDC) | payer OTHER ==
[2023-04-20 16:37] VITALS: BMI 47.7
--- NOTE | 2023-04-23 14:32 | P.HPOB ---
History of Present Illness H&P Date: 04/23/23 Chief Complaint: HGSIL 37 year old presents for LEEP due to 2 grade discrepancy between pap and colp. The pap showed HGSIL and the colp was negative. Review of Systems All systems: negative Constitutional: Denies chills, Denies fever Eyes: denies blurred vision, denies pain Ears, nose, mouth and throat: Denies headache, Denies sore throat Cardiovascular: Denies chest pain, Denies shortness of breath Respiratory: Denies cough Gastrointestinal: Denies abdominal pain, Denies diarrhea, Denies nausea, Denies vomiting Genitourinary: Denies dysuria, Denies hematuria Musculoskeletal: Denies myalgias Integumentary: Denies pruritus, Denies rash Neurological: Denies numbness, Denies weakness Psychiatric: Denies anxiety, Denies depression Endocrine: Denies fatigue, Denies weight change Past Medical History Past Medical History: Hypertension Additional Past Medical History / Comment(s): CURRENTLY ON ANTIBIOTICS FOR TOOTH INFECTION SINCE 04/16/23-PT STATES DR. BOWERS'S OFFICE AWARE History of Any Multi-Drug Resistant Organisms: None Reported Past Surgical History: Tubal Ligation Past Anesthesia/Blood Transfusion Reactions: No Reported Reaction, Motion Sickness Additional Past Anesthesia/Blood Transfusion Reaction / Comment(s): . Smoking Status: Former smoker Past Alcohol Use History: None Reported Past Drug Use History: None Reported - Past Family History Mother Family Medical History: No Reported History Medications and Allergies Home Medications Medication Instructions Recorded Confirmed Type Propranolol [Inderal] 20 mg PO BID 12/02/20 04/20/23 History Amoxic-Pot Clav 875-125Mg 1 tab PO TID 04/20/23 04/20/23 History [Augmentin 875-125] Allergies Allergy/AdvReac Type Severity Reaction Status Date / Time No Known Allergies Allergy Verified 04/20/23 16:07 Exam Osteopathic Statement: *. No significant issues noted on an osteopathic structural exam other than those noted in the History and Physical/Consult. HEart: RRR Lungs: CTAB Abdomen: soft, nontender Extremeties: neg yissel's Assessment and Plan (1) HGSIL (high grade squamous intraepithelial dysplasia) Status: Acute Code(s): [id number] - SNOMED Code(s): 572618331 Plan: LEEP
[~2023-04-24 06:44] MED LIST changes: -DEXAMETHASONE SOD PHOSPHATE 4 MG/ML 1 ML VIAL IV ONE; -HYDROmorphone 0.5 MG/0.5 ML SYRINGE IVP PRN; -LACTATED RINGERS 1,000 ML IV SCH; -LIDOCAINE 1% (10MG/ML) FOR IV START INTRADERMA PRN; -MIDAZOLAM 2 MG/2 ML VIAL IV PRN; -ONDANSETRON 4 MG/2 ML VIAL IVP ONE
[2023-04-24] MEDS ORDERED: ONDANSETRON 4 MG/2 ML VIAL IVP ONE (07:07)
[2023-04-24] MEDS ORDERED: DEXAMETHASONE SOD PHOSPHATE 4 MG/ML 1 ML VIAL IV ONE (07:07)
[2023-04-24] MEDS ORDERED: fentaNYL (PF) 50 MCG/ML 2 ML AMP IVP PRN (07:07)
[2023-04-24] MEDS ORDERED: HYDROmorphone 0.5 MG/0.5 ML SYRINGE IVP PRN (07:07)
[2023-04-24] MEDS ORDERED: LACTATED RINGERS 1,000 ML IV SCH (07:07)
[2023-04-24] MEDS ORDERED: MIDAZOLAM 2 MG/2 ML VIAL IV PRN (07:07)
[2023-04-24] MEDS ORDERED: LIDOCAINE 1% (10MG/ML) FOR IV START INTRADERMA PRN (07:07)
[2023-04-24] MEDS ORDERED: MIDAZOLAM 2 MG/2 ML VIAL ONE (07:53)
[2023-04-24] MEDS ORDERED: fentaNYL (PF) 50 MCG/ML 2 ML AMP ONE (07:53)
[2023-04-24] MEDS ORDERED: PROPOFOL 10 MG/ML 20 ML VIAL IV ONE (07:53)
[2023-04-24] MEDS ORDERED: KETOROLAC 30 MG/ML 1 ML VIAL ONE (07:53)
[2023-04-24] MEDS ORDERED: LIDOCAINE 1% INJ 10MG/ML (20 ML MDV) ONE (07:53)
[2023-04-24] MEDS ORDERED: FERRIC SUBSULFATE (MONSELS) JAR TOPICAL ONE (08:11)
[2023-04-24] MEDS ORDERED: ACETIC ACID 15 DROPS/ML DROPS MISCELLANE ONE (08:11)
--- NOTE | 2023-04-24 08:44 | P.OP ---
Date of Procedure: 04/24/23 Preoperative Diagnosis: 1. HGSIL Postoperative Diagnosis: same Procedure(s) Performed: LEEP Anesthesia: MAC Surgeon: Kristy Jerome Estimated Blood Loss (ml): 10 IV fluids (ml): 100 Urine output (ml): 15 Pathology: other (cervical cone) Condition: stable Disposition: PACU Description of Procedure: Patient was taken to the OR and general anesthesia was obtained without difficulty. She was prepped and draped in the normal sterile fashion in dorsal lithotomy position, legs placed in the Jason stirrups. The bladder was drained of all urine. A coated bivalve speculum was placed in the vagina. Acetic acid was placed on the cervix but no abnormalities were noted, consistent with colposcopy. The 2 cm loop was used from the patient's right to the left and a segment was removed this lacked the left side of the cervix so I took another swipe from the left to the right side of the patient. The 2 pieces were sent to pathology as cervical cone. The ball tip cautery was then used to burn the crater left in the cervix and obtain hemostasis. Monsel's was placed to ensure hemostasis. All instruments removed from the vagina. Patient tolerated procedure well, sponge and instrument counts correct 2. She was taken to re covery in stable condition.
[2023-04-24 08:50] VITALS: RESP 16; TEMP 98
[2023-04-24 09:38] VITALS: PULSE 60
[2023-04-24] MEDS ORDERED: ONDANSETRON 4 MG/2 ML VIAL ONE (09:48)
[2023-04-24 10:02] VITALS: BP 114/75
== END 2023-04-24 10:15 | disposition home or self-care (01) ==
LOC: OR 06:44
PROVIDERS: ATTEND Obstetrics & Gynecology
DX: N87.1 Moderate cervical dysplasia (principal); I10 Essential (primary) hypertension; Z87.891 Personal history of nicotine dependence; Z79.899 Other long term (current) drug therapy
CPT/HCPCS: 57522; 81025; 88307; J2250; J1100; J2405; J2001; J3010; J1885; J2704